=== PATIENT | female | born 1945 | race Caucasian/White ===

== ENCOUNTER → 2023-07-16 12:11 | Outpatient (CLI) | payer MEDICARE, OTHER, SELFPAY ==
[2023-07-16 13:22] LABS: Appearance Urine UA CLEAR; Bilirubin Urine UA NEGATIVE (NEGATIVE); Color Urine UA YELLOW; Glucose Urine UA NEGATIVE (Negative); Ketones Urine UA NEGATIVE (NEGATIVE); Leukocyte Esterase Urine UA NEGATIVE (NEGATIVE); Nitrite Urine UA NEGATIVE (Negative); Occult Blood Urine UA NEGATIVE (Negative); Protein Urine UA NEGATIVE (Negative); Specific Gravity Urine UA <=1.005 (1.000-1.035); Urobilinogen Urine UA 0.2 E.U./dL (0.2)
[2023-07-16 13:25] LABS: Add Manual Diff / Slide Review NO; Basophils Absolute Auto 100 /uL (0-100); Basophils Percent Auto 1.1 % (0-2); Eosinophils Absolute Auto 200 /uL (0-450); Eosinophils Percent Auto 2.7 % (2-4); Hematocrit 40.8 % (36-46); Hemoglobin 13.7 g/dL (12.0-16.0); Lymphocytes Absolute Auto 900 /uL (1100-4500); Lymphocytes Percent Auto 14.9 % (25-40); Mean Corpuscular HGB Conc 33.6 % (30-36); Mean Corpuscular Hemoglobin 32.8 PG (26-34); Mean Corpuscular Volume 97.6 fL (80-100); Monocytes Absolute Auto 700 /uL (0-900); Monocytes Percent Auto 10.9 % (3-14); Neutrophils Absolute Auto 4300 /uL (1500-7000); Neutrophils Percent Auto 70.4 % (50-75); Platelet Count 294 X10^3/uL (150-400); Red Blood Cell Count 4.18 X10^6/uL (4.0-5.2); Red Cell Distribution Width 13.9 % (11.6-14.8); White Blood Cell Count 6.1 X10^3/uL (4.5-11.0)
[2023-07-16 13:26] LABS: pH Urine UA 6.5 (4.5-8.0)
[2023-07-16 13:30] LABS: Bacteria Urine None Seen; Culture Indicated Urine Cult Not Indicated; RBC Urine None Seen (0-5/HPF); Squamous Epithelial Cell Urine None Seen (0-5/HPF); Urine Volume 10mL (spun); WBC Urine None Seen (0-5/HPF)
[2023-07-16 13:55] LABS: BUN Creatinine Ratio 26.3 (6-22); Blood Urea Nitrogen 15 mg/dL (7-17); Calcium 9.3 mg/dL (8.4-10.2); Carbon Dioxide 25 mmol/L (22-32); Chloride 105 mmol/L (98-107); Estimated Glomerular Filt Rate > 60 mL/min (>60); Glucose 95 mg/dL (80-110); HEMOLYSIS < 15 (0-50); Potassium 4.3 mmol/L (3.4-5.1); Sodium 137 mmol/L (137-145)
== END ==
PROVIDERS: PCP Family Medicine; Referring Provider Orthopaedic Surgery; Visit Provider Orthopaedic Surgery
DX: Z01.818 Encounter for other preprocedural examination (principal); R73.9 Hyperglycemia, unspecified; Z01.812 Encounter for preprocedural laboratory examination; N39.0 Urinary tract infection, site not specified
CPT/HCPCS: 36415; 80048; 81001; 83036; 85025; 93005; 93010

== ENCOUNTER 2023-09-29 11:53 | Inpatient (IN) | payer MEDICARE, OTHER, SELFPAY ==
[2023-09-29] VITALS (45 sets, daily range): BP systolic 105–164; BP diastolic 55–113; PULSE 77–177; RESP 6–29; TEMP 36.5–36.9; O2SAT 92–99; BMI 23.2; BMI 23.3
[2023-09-29 12:38] LABS: Add Manual Diff / Slide Review NO; Basophils Absolute Auto 0 /uL (0-100); Basophils Percent Auto 0.1 % (0-2); Eosinophils Absolute Auto 0 /uL (0-450); Hematocrit 47.3 % (36-46); Hemoglobin 15.7 g/dL (12.0-16.0); Lymphocytes Absolute Auto 200 /uL (1100-4500); Lymphocytes Percent Auto 1.1 % (25-40); Mean Corpuscular HGB Conc 33.3 % (30-36); Mean Corpuscular Hemoglobin 32.3 PG (26-34); Monocytes Absolute Auto 1200 /uL (0-900); Monocytes Percent Auto 6.6 % (3-14); Neutrophils Absolute Auto 16700 /uL (1500-7000); Neutrophils Percent Auto 92.2 % (50-75); Platelet Count 351 X10^3/uL (150-400); Red Blood Cell Count 4.87 X10^6/uL (4.0-5.2); White Blood Cell Count 18.1 X10^3/uL (4.5-11.0)
[2023-09-29 12:56] LABS: Bacteria Urine Many (>30); RBC Urine None Seen (0-5/HPF); Squamous Epithelial Cell Urine 5-10 /HPF (0-5/HPF); Urine Volume 10mL (spun); WBC Urine 1-5/HPF (0-5/HPF)
[2023-09-29 12:57] LABS: Culture Indicated Urine Specimen Cultured
[2023-09-29 12:59] LABS: Alanine Aminotransferase 17 IU/L (<35); Albumin 4.5 g/dL (3.5-5.0); Albumin Globulin Ratio 1.5 (1.0-2.8); Alkaline Phosphatase 70 U/L (38-126); Aspartate Aminotransferase 22 IU/L (14-36); BUN Creatinine Ratio 25.4 (6-22); Bilirubin Total 1.3 mg/dL (0.2-1.3); Blood Urea Nitrogen 16 mg/dL (7-17); Carbon Dioxide 26 mmol/L (22-32); Chloride 98 mmol/L (98-107); Estimated Glomerular Filt Rate > 60 mL/min (>60); Glucose 146 mg/dL (80-110); HEMOLYSIS < 15 (0-50); Lipase 65 U/L (23-300); Potassium 3.9 mmol/L (3.4-5.1); Sodium 133 mmol/L (137-145); Total Protein 7.5 g/dL (6.3-8.2)
--- NOTE | 2023-09-29 13:18 | ED.ABDPAIN ---
HPI - Abdominal Pain General Chief Complaint: Abdominal Pain Stated Complaint: sent by pcp obstruction of bowel Time Seen by Provider: 09/29/23 12:51 Source: patient Mode of arrival: Ambulatory Limitations: no limitations History of Present Illness HPI narrative: This is a 78-year-old female with history of osteopenia and arthritis. Patient states she started vomiting had 1 or 2 episodes and Thursday throughout Thursday and into yes. She states she has been stooling regularly each day her last bowel movement was yesterday she states normal form solid. She denies any hematochezia or melena. She denies any dysuria urgency or frequency. She does describe abdominal pain lower abdomen she states was quite painful when Dr. Melgoza palpated on the right side today that started around when she started vomiting. She denies any fevers or chills. No shortness of breath or chest pain, she does not feel her heart is fast rate is in the 170s, she has not had any syncope. Denies any significant lightheadedness. She denies any swelling in her extremities. She states she is on finasteride, clobetasol, estradiol patch and medication for osteopenia. No anticoagulants. Patient states no medicines for heart. no blood pressure, cholesterol or diabetes. Had a script sent for oxycodone anticipation of an upcoming knee surgery but has not been taking it. She has had a prior hysterectomy, both ovaries removed, appendix removed cataract surgery. No known drug allergies. No tobacco, she has a glass of wine several times weekly, no recreational drugs. Swapna Gillespie is her primary care physician. Dr. Alexander is her design engineering manager. She was sent from the urgent care today for concern for bowel obstruction she states no one told her heart rate was fast at that time. She does not have any sensation that her heart rate is fast. Related Data Allergies Allergy/AdvReac Type Severity Reaction Status Date / Time latex Allergy Rash Verified 09/29/23 11:57 Review of Systems Review of Systems ROS Unobtainable: All systems reviewed & are unremarkable except as noted in HPI and below Patient History Social History Smoking Status: Never smoker Smoking Status: Never smoker alcohol intake frequency: 0-2 drinks per day Substance Use Type: does not use Exam Narrative Exam Narrative: GENERAL: Alert and oriented x three, well-appearing elderly female in mild distress. HEENT: Head normocephalic, atraumatic, EOMI, pupils reactive, face symmetric, moist mucous membranes NECK: Supple, full range of motion CARDIOVASCULAR: Tachycardic but regular rate and rhythm without murmurs, rubs or gallops. 2+ pulses upper and lower extremities. No edema bilateral lower extremities. RESPIRATORY: Breath sounds equal bilaterally, no wheezes rales or rhonchi. No tachypnea or accessory muscle use. ABDOMEN: Soft, positive for right lower quadrant tenderness. Slightly distended. Normoactive bowel sounds all 4 quadrants. No guarding or rebound, rigidity, no mass, no hernias. : No CVA tenderness EXTREMITIES: Normal range of motion, no clubbing or edema. Neurovascularly intact NEUROLOGICAL: Cranial nerves II through XII grossly intact. Moving all extremities SKIN: Warm, dry, no petechiae, no rashes or lesions. Initial Vital Signs Initial Vital Signs: Vital Signs Temperature 98.5 F 09/29/23 11:58 Pulse Rate 115 H 09/29/23 11:58 Respiratory Rate 18 09/29/23 11:58 Blood Pressure 118/94 H 09/29/23 11:58 Pulse Oximetry 99 09/29/23 11:58 Oxygen Delivery Method Room Air 09/29/23 11:58 Course Orders Ordered: ED Orders 09/29/23 12:01 EKG-12 Lead Stat 09/29/23 12:05 Urine Culture Stat Urine Microscopic Stat 09/29/23 12:20 Lactate (Lactic Acid) Stat Procalcitonin Stat 09/29/23 12:25 BNP [NT-proBNP (BNP-Adult 18+)] Stat Complete Blood Count AUTO DIFF Stat Comprehensive Metabolic Panel Stat Lipase Stat MAG [Magnesium] Stat Troponin & CK Cardiac Panel Stat 09/29/23 13:16 CT abdomen pelvis w con Stat Chest [XR chest 1V] Stat 09/29/23 13:37 Blood Culture Stat 09/29/23 15:00 PTT Partial Thromboplastin Jose Q6H 09/29/23 15:21 XR gastrografin challenge Stat 09/29/23 15:54 PTT Partial Thromboplastin Jose Stat Prothrombin Time INR Stat 09/29/23 21:00 PTT Partial Thromboplastin Jose Q6H 09/30/23 03:00 PTT Partial Thromboplastin Jose Q6H 09/30/23 05:00 Hemoglobin and Hematocrit DAILY Platelet Count DAILY 09/30/23 09:00 PTT Partial Thromboplastin Jose Q6H 10/01/23 05:00 Hemoglobin and Hematocrit DAILY Platelet Count DAILY DILTIAZEM (Diltiazem 125 Mg/125 Ml-D5w) 125 mg in 125 mls @ 5 mls/hr IV TITRATE BARI; Protocol Last Admin: 09/29/23 15:00 Dose: 5 mg/hr, 5 mls/hr Documented By: JOSE RAFAEL Heparin Sodium/Dextrose (Heparin Drip) 25,000 unit in 500 mls @ 21.392 mls/hr IV CONT BARI; Protocol Last Admin: 09/29/23 16:04 Dose: 18 units/kg/hr, 21.392 mls/hr Documented By: SILVIA Co-signed By: JOSE RAFAEL Ondansetron HCl (Ondansetron 4 Mg Odt) 4 mg PO NOW PRN PRN Reason: Nausea And Vomiting Ondansetron HCl (Ondansetron 4 Mg/2 Ml Inj) 4 mg IV NOW PRN PRN Reason: Nausea And Vomiting Discontinued Medications Diltiazem HCl (Diltiazem 5 Mg/Ml Sdv) 10 mg IV NOW ONE Stop: 09/29/23 14:31 Last Admin: 09/29/23 14:49 Dose: 10 mg Documented By: JOSE RAFAEL Heparin Sodium (Porcine) (Heparin 5,000 Unit/Ml Vial) 5,000 unit 80 unit/kg (5000 unit) IV NOW ONE Stop: 09/29/23 14:46 Last Admin: 09/29/23 16:03 Dose: 5,000 unit Documented By: SILVIA Sodium Chloride (Normal Saline 0.9%) 1,000 mls @ 1,000 mls/hr IV BOLUS ONE Stop: 09/29/23 14:15 Last Infusion: 09/29/23 15:07 Dose: Infused Documented By: JOSE RAFAEL Admin: 09/29/23 13:23 Dose: 1,000 mls/hr Documented By: SILVIA Ceftriaxone Sodium 1,000 mg/ (Sodium Chloride) 100 mls @ 200 mls/hr IV NOW ONE Stop: 09/29/23 14:31 Last Infusion: 09/29/23 15:41 Dose: Infused Documented By: Admin: 09/29/23 15:00 Dose: 200 mls/hr Documented By: JOSE RAFAEL Ondansetron HCl (Ondansetron 4 Mg/2 Ml Inj) 4 mg IV NOW ONE Stop: 09/29/23 14:30 Last Admin: 09/29/23 15:00 Dose: 4 mg Documented By: JOSE RAFAEL Sodium Chloride (Sodium Chloride 0.9% Flush) 10 ml IV BID BARI Sodium Chloride (Sodium Chloride 0.9% Flush) 10 ml IV PRN PRN PRN Reason: Flush Vital Signs Vital signs: Vital Signs - 8 hr 09/29/23 11:58 09/29/23 12:20 09/29/23 12:30 Temperature 98.5 F Pulse Rate 115 H 173 H 171 H Respiratory Rate 18 29 H 25 H Blood Pressure 118/94 H Pulse Oximetry 99 97 96 Oxygen Delivery Method Room Air 09/29/23 12:47 09/29/23 12:47 09/29/23 13:00 Temperature Pulse Rate 177 H Respiratory Rate 25 H Blood Pressure 126/82 105/81 Pulse Oximetry 96 Oxygen Delivery Method 09/29/23 13:00 09/29/23 13:30 09/29/23 13:30 Temperature Pulse Rate 174 H 167 H Respiratory Rate 20 21 Blood Pressure 113/78 Pulse Oximetry 94 94 Oxygen Delivery Method 09/29/23 13:55 09/29/23 13:55 09/29/23 14:00 Temperature Pulse Rate 159 H 165 H Respiratory Rate 22 26 H Blood Pressure 145/65 H Pulse Oximetry 95 96 Oxygen Delivery Method 09/29/23 14:00 09/29/23 14:30 09/29/23 14:30 Temperature Pulse Rate 165 H Respiratory Rate 24 Blood Pressure 149/67 H 164/113 H Pulse Oximetry 95 Oxygen Delivery Method 09/29/23 14:55 09/29/23 14:55 09/29/23 15:00 Temperature Pulse Rate 162 H 159 H Respiratory Rate 25 H 24 Blood Pressure 142/82 H Pulse Oximetry 97 94 Oxygen Delivery Method 09/29/23 15:00 09/29/23 15:05 09/29/23 15:05 Temperature Pulse Rate 154 H Respiratory Rate 15 Blood Pressure 120/77 128/75 Pulse Oximetry 93 Oxygen Delivery Method MDM - Abdominal Pain Lab Data 09/29/23 12:25 09/29/23 12:25 Labs: Lab Results 04/30/24 04/30/24 04/30/24 Range/Units 12:05 12:20 12:25 WBC 18.1 H (4.5-11.0) X10^3/uL RBC 4.87 (4.0-5.2) X10^6/uL Hgb 15.7 (12.0-16.0) g/dL Hct 47.3 H (36-46) % MCV 97.0 (80-100) fL MCH 32.3 (26-34) PG MCHC 33.3 (30-36) % RDW 13.0 (11.6-14.8) % Plt Count 351 (150-400) X10^3/uL Neut % (Auto) 92.2 H (50-75) % Lymph % (Auto) 1.1 L (25-40) % Benson % (Auto) 6.6 (3-14) % Eos % (Auto) 0.0 L (2-4) % Baso % (Auto) 0.1 (0-2) % Neut # (Auto) 46655 H (1591-4918) /uL Lymph # (Auto) 200 L (1715-6636) /uL Benson # (Auto) 1200 H (0-900) /uL Eos # (Auto) 0 (0-450) /uL Baso # (Auto) 0 (0-100) /uL Sodium 133 L (137-145) mmol/L Potassium 3.9 (3.4-5.1) mmol/L Chloride 98 (98-107) mmol/L Carbon Dioxide 26 (22-32) mmol/L BUN 16 (7-17) mg/dL Creatinine 0.63 (0.52-1.04) mg/dL Estimated GFR > 60 (>60) mL/min BUN/Creatinine Ratio 25.4 H (6-22) Glucose 146 H (80-110) mg/dL Lactate 2.1 (0.7-2.1) mmol/L Calcium 10.0 (8.4-10.2) mg/dL Magnesium 1.9 (1.6-2.3) mg/dL Total Bilirubin 1.3 (0.2-1.3) mg/dL AST 22 (14-36) IU/L ALT 17 (<35) IU/L Alkaline Phosphatase 70 (38-126) U/L Total Creatine Kinase 82 (30-135) U/L Troponin I < 0.012 (0.01-0.034) ng/mL NT-Pro-B Natriuret Pep 395 (<450) pg/mL Total Protein 7.5 (6.3-8.2) g/dL Albumin 4.5 (3.5-5.0) g/dL Globulin 3.0 (1.7-4.1) g/dL Albumin/Globulin Ratio 1.5 (1.0-2.8) Lipase 65 (23-300) U/L Procalcitonin 0.07 (<0.5) ng/mL Urine RBC None seen (0-5/HPF) Urine WBC 1-5/hpf (0-5/HPF) Ur Squamous Epith Cells 5-10 /hpf H (0-5/HPF) Urine Bacteria Many (>30) H (None) Ur Culture Indicated? Specimen cultured Vol Urine Centrifuged 10ml (spun) Point of care testing: Urine Dip Bedside Urine Glucose Negative Bedside Urine Bilirubin - Negative Bedside Urine Ketone +++ 80 Urine Specific [place] 1.030 Bedside Urine Occult Blood +/- Bedside Urine pH 6.0 Bedside Urine Protein + 30 Bedside Urine Urobilinogen - Negative Bedside Urine Nitrite - Negative Bedside Urine Leukocytes - Negative Esterase Imaging Data Chest x-ray: Radiologist's Impression: [place] [address] XRay Report Signed Patient: Hodan Diaz MR#: [id number] : 1945 Acct:[id number] Age/Sex: 78 / F Date of Service: 09/29/23 Loc: ED Accession Number: [id number] Procedure: XR chest 1V Ordering Provider: Ruth Ann Stewart D.O. PROCEDURE: XR CHEST 1V INDICATIONS: abd pain, RLQ and LLQ, hx appy and hyst, afib rvr TECHNIQUE: One view of the chest was acquired. COMPARISON: None. FINDINGS: Surgical changes and devices: None. Lungs and pleura: Mild opacity in the right infrahilar region. No drainable pleural effusions. No dense consolidation elsewhere. Mediastinum: Normal heart size Bones and chest wall: Degenerative changes. IMPRESSION: On this single view radiograph, there is a mild right infrahilar opacity that may represent airspace disease versus atelectasis. No drainable effusions. Consider future imaging surveillance to assess for resolution. Dictated by: Rocco Griffith M.D. on 09/29/2023 at 14:07 Approved by: Rocco Griffith M.D. on 09/29/2023 at 14:08 CT scan - abdomen/pelvis: Radiologist's Impression: Hodan Diaz??78??F??1945 ? Allergy/Adv: latex Close Chest X-Ray (Signed) Jesse Griffithry - 09/29/23 Abdomen/Pelvis CT (Signed) NachoRocco - 09/29/23 [place] [address] CT Scan Report Signed Patient: Hodan Diaz MR#: [id number] : 1945 Acct:[id number] Age/Sex: 78 / F Date of Service: 09/29/23 Loc: ED Accession Number: [id number] Procedure: CT abdomen pelvis w con Ordering Provider: Ruth Ann Stewart D.O. PROCEDURE: CT ABDOMEN PELVIS W CON INDICATIONS: abd pain, RLQ and LLQ, hx appy and hyst, afib rvr TECHNIQUE: After the administration of intravenous contrast, axial sections acquired from the lung bases to the pubic symphysis. Coronal and sagittal reformats were performed. For radiation dose reduction, the following was used: automated exposure control, adjustment of mA and/or kV according to patient size. COMPARISON: None. FINDINGS: Image quality: Diagnostic Lower chest: Scattered scarring and atelectasis. Infrahilar opacity on the right confirmed, with a consolidation in the right middle lobe. Normal heart size Liver: Small perihepatic ascites. No suspicious focal liver lesion Gallbladder and biliary system: Gallbladder is unremarkable. No pathologic biliary ductal dilation Pancreas: No suspicious ductal dilation Spleen: Nonenlarged Adrenals: No discrete nodules Kidneys: No solid mass or hydronephrosis. Bilateral extrarenal pelvis/mild pelviectasis. Subcentimeter lesions are too small to characterize, usually cysts Vessels and lymph nodes: The main portal vein is patent. No abdominal aortic aneurysm. Possible filling defect in the right common femoral vein and iliac veins, versus mixing artifact. No pathologic lymph nodes by size criteria Bowel and peritoneum: Moderate diffuse dilation of the small bowel loops relative under distension of the colon. Transition is probably in the lower right abdomen. Small amount of perienteric ascites. Small amount pelvic free fluid. Body wall: Unremarkable Pelvis: Bladder is unremarkable. Uterus is not seen Bones: Left hip arthroplasty, with surrounding metallic artifact. There are degenerative changes. IMPRESSION: Small bowel obstruction. Transition is probably in the lower right abdomen. Small amount of ascites, possibly reactive. Right middle lobe pulmonary opacities suspicious for infection. Other areas of suspected atelectasis are seen. Possible filling defect in the right common femoral vein and iliac veins, representing mixing artifact versus thrombus. Consider vascular ultrasound correlation. Other findings as above. Dictated by: Rocco Griffith M.D. on 09/29/2023 at 14:13 Approved by: Rocco Griffith M.D. on 09/29/2023 at 14:20 ECG Data Attestation: I personally reviewed and interpreted this ECG as follows: Interpretation: AFib with RVR, rate of 179 QRS is 76 QTC 459. Nonspecific change patient does have little bit depression lateral lead. No elevation appreciated. MDM Narrative Medical decision making narrative: Well-appearing 78-year-old female with AFib RVR with heart rate in the 170s, patient is tolerating quite well. She has had vomiting for the past 5 days she is having bowel movements does have some right lower quadrant pain that she describes as sometimes being on both sides. Concern for dehydration obstruction versus infection possibly kicking off her cardiac arrhythmia. She does not have any sensation of having tachycardia. She was in urgent care and sent today and their note does not indicate she was tachycardic at that time. Patient labs show white count of 18 hemoglobin of 15 platelets of 351 predominance of neutrophils. Sodium is 133 potassium 3 9 chloride 98 CO2 is 26 BUN 16 creatinine 0.63 glucose is 146 calcium 10, magnesium is 1.9 LFTs are negative. Lipase is normal. Troponin is negative. BNP is 395 Urine shows ketones, protein, no nitrates or leuks, no RBCs 1-5 WBCs 5-10 squamous many bacteria patient urine was sent for culture. Chest x-ray shows mild right infrahilar opacity may represent airspace disease versus atelectasis no drainable effusions consider surveillance to assess for resolution. Patient family updated about need for follow-up. CT abdomen pelvis shows small bowel obstruction transition probably right lower abdomen small amount of ascites possibly reactive right middle lobe pulmonary opacities suspicious for infection possible filling defect right common femoral iliac vein representing artifact versus thrombus consider vascular ultrasound correlation. Patient likely has a component of dehydration was given 1 L fluids before and any antiarrhythmics, her heart rate. Spoke with Dr. Lomeli, general surgery: Is to see the happy to see the patient, discussed she does have AFib RVR and some medical issues currently with plan for admit to medicine. Dr. Peraza, hospitalist: Discussed patient has had some bowel movements so maybe more of a partial bowel obstruction, accepts for admission we will have a start heparin drip for potential surgery can be easily turned off. Continue with diltiazem drip. Did discuss there is question of artifact versus thrombus in the right iliac vessel on CT, Dr. De Los Santos states they will follow with that and decide if they need further imaging or next steps. Critical Care Time Critical Care Time Critical Care Time: Yes Total Critical Care Time: 45 Attestation: The high probability of a clinically significant, sudden or life threatening deterioration of the [cardiac, pulm] system(s) required my full and direct attention, intervention and personal management. The aggregate critical care time was [] minutes. This time is in addition to time spent performing reported procedures but includes the following: [x] Data Review and interpretation [x] Patient assessment and monitoring of vital signs [x] Documentation [x] Medication orders and management Discharge Plan Departure Patient Disposition: Admitted As Inpatient Clinical Impression: Atrial fibrillation with rapid ventricular response, Small bowel obstruction, Pneumonia
[2023-09-29] MEDS: SODIUM CHLORIDE 0.9% 1,000 ML 1000 ML IV (13:23)
[2023-09-29 13:34] LABS: Creatine Kinase 82 U/L (30-135); Magnesium 1.9 mg/dL (1.6-2.3)
[2023-09-29 13:39] LABS: Lactate (Lactic Acid) 2.1 mmol/L (0.7-2.1)
[2023-09-29 13:46] LABS: NT-proBNP (BNP-Adult 18+) 395 pg/mL (<450); Troponin I < 0.012 ng/mL (0.01-0.034)
[2023-09-29 13:57] LABS: Procalcitonin 0.07 ng/mL (<0.5)
[2023-09-29] MEDS: dilTIAZem 5 MG/ML SDV 10 MG IV (14:49)
[2023-09-29] MEDS: ONDANSETRON 4 MG/2 ML INJ IV (15:00)
[2023-09-29] MEDS: DILTIAZEM 125 MG/125 ML PIGGYBACK IV (15:00)
[2023-09-29] MEDS: cefTRIAXone 1,000 MG in SODIUM CHLORIDE 0.9% 100 ML 200 MG IV (15:00)
[2023-09-29 15:06] LABS: Reflexed Lactate in 2 Hours Y
--- NOTE | 2023-09-29 15:21 | DI.RAD.S_ITS ---
PROCEDURE: XR GASTROGRAFIN CHALLENGE COMPARISON: [facility], CT, CT ABDOMEN PELVIS W CON, 09/29/2023, 13:42. INDICATIONS: sbo FINDINGS: Single abdominal image demonstrates mildly dilated loops of small bowel. Contrast is not identified within the colon. Overall appearance is not significantly changed compared to prior exam. Left hip arthroplasty. IMPRESSION: Persistent appearance of partial small bowel obstruction without significant change compared to CT exam. No contrast is definitively identified in the colon. If this remains of concern, further delayed imaging is recommended. Dictated by: Qing Johnson M.D. on 09/29/2023 at 22:07 Approved by: Qing Johnson M.D. on 09/29/2023 at 22:08
--- NOTE | 2023-09-29 15:22 | PM.CALLCOV.1 ---
Call Coverage Note Note Date of Patient Contact: 09/29/23 Time of Patient Contact: 15:22 Narrative of Care Provided: 78F admitted with PNA AFib and SBO. No acute surgical intervention proceed with conservative management Gastrografin challenge NGT if emesis
[2023-09-29] MEDS: HEPARIN 5,000 UNIT/ML VIAL 5000 UNIT IV (16:03)
[2023-09-29] MEDS: HEPARIN DRIP 25,000 UNIT/500 ML IV.SOLN 21.392 UNIT IV (16:04)
[2023-09-29 16:12] LABS: INR 1.2 (0.9-1.3); Prothrombin Time 13.6 SECONDS (9.4-12.5)
[2023-09-29 16:15] LABS: PTT Partial Thromboplastin Tim 37 SECONDS (25.1-36.5)
--- NOTE | 2023-09-29 17:01 | PC.NURSE ---
patients heart rate noted to be 86 on bedside monitor and an EKG was ordered and done. It was showed to Dr. Stewart which showed that the patient converted to NSR at a rate of [address] Peraza called and ordered for the diltiazem drip to be stopped.
[2023-09-29] MEDS: MORPHINE 2 MG/ML INJ IV ×2 (17:29→21:38)
--- NOTE | 2023-09-29 19:00 | P.HP_ITS ---
History of Present Illness History of Present Illness Date Patient Seen: 09/29/23 Time Patient Seen: 19:00 Chief complaint: sent by pcp obstruction of bowel Narrative: Pt is 78 yo female with hx hysterectomy, no other abdominal surgeries, presents with c/o abdominal pain x 1 week. She started vomiting episodes 5 days ago, last BM yesterday. She has no history of heart problems. She was noted to be in afib with RVR, rate 170 bpm in ED. She denies any palpitations, chest pain or dyspnea. CT showed small bowel obstruction with transition in RLQ. Right middle lobe lung opacities suspicious for pneumonia, partial filling defect right CFV and iliac veins - artifact vs DVT. Pt denies fever, cough, dyspnea, leg swelling. Hasn't had urinary symptoms. Dr Lomeli consulted from ED. For afib she was started on diltiazem drip and later converted to sinus on her own. K and Mg are nl. WBC 18k, nl lactate. EKG personally reviewed and shows afib without ST abnormality. Troponin nl. PFSH Social History Smoking Status: Never smoker Meds Home Medications and Allergies Allergies Allergy/AdvReac Type Severity Reaction Status Date / Time latex Allergy Rash Verified 09/29/23 11:57 Exam Vital Signs (past 8 hours): - 09/29/23 11:58 09/29/23 12:20 09/29/23 12:30 Temperature 98.5 F Pulse Rate 115 H 173 H 171 H Respiratory Rate 18 29 H 25 H Blood Pressure 118/94 H Pulse Oximetry 99 97 96 Oxygen Delivery Method Room Air 09/29/23 12:47 09/29/23 12:47 09/29/23 13:00 Temperature Pulse Rate 177 H Respiratory Rate 25 H Blood Pressure 126/82 105/81 Pulse Oximetry 96 Oxygen Delivery Method 09/29/23 13:00 09/29/23 13:30 09/29/23 13:30 Temperature Pulse Rate 174 H 167 H Respiratory Rate 20 21 Blood Pressure 113/78 Pulse Oximetry 94 94 Oxygen Delivery Method 09/29/23 13:55 09/29/23 13:55 09/29/23 14:00 Temperature Pulse Rate 159 H 165 H Respiratory Rate 22 26 H Blood Pressure 145/65 H Pulse Oximetry 95 96 Oxygen Delivery Method 09/29/23 14:00 09/29/23 14:30 09/29/23 14:30 Temperature Pulse Rate 165 H Respiratory Rate 24 Blood Pressure 149/67 H 164/113 H Pulse Oximetry 95 Oxygen Delivery Method 09/29/23 14:55 09/29/23 14:55 09/29/23 15:00 Temperature Pulse Rate 162 H 159 H Respiratory Rate 25 H 24 Blood Pressure 142/82 H Pulse Oximetry 97 94 Oxygen Delivery Method 09/29/23 15:00 09/29/23 15:05 09/29/23 15:05 Temperature Pulse Rate 154 H Respiratory Rate 15 Blood Pressure 120/77 128/75 Pulse Oximetry 93 Oxygen Delivery Method 09/29/23 15:10 09/29/23 15:10 09/29/23 15:15 Temperature Pulse Rate 161 H 167 H Respiratory Rate 23 15 Blood Pressure 142/87 H Pulse Oximetry 94 94 Oxygen Delivery Method 09/29/23 15:15 09/29/23 15:20 09/29/23 15:20 Temperature Pulse Rate 162 H Respiratory Rate 20 Blood Pressure 127/77 118/72 Pulse Oximetry 94 Oxygen Delivery Method 09/29/23 15:25 09/29/23 15:25 09/29/23 15:30 Temperature Pulse Rate 165 H Respiratory Rate 13 Blood Pressure 108/75 154/66 H Pulse Oximetry 94 Oxygen Delivery Method 09/29/23 15:30 09/29/23 15:35 09/29/23 15:35 Temperature Pulse Rate 164 H 175 H Respiratory Rate 15 23 Blood Pressure 135/77 Pulse Oximetry 94 93 Oxygen Delivery Method 09/29/23 15:40 09/29/23 15:40 09/29/23 15:45 Temperature Pulse Rate 174 H 167 H Respiratory Rate 14 21 Blood Pressure 141/79 H Pulse Oximetry 95 95 Oxygen Delivery Method 09/29/23 15:45 09/29/23 15:50 09/29/23 15:50 Temperature Pulse Rate 165 H Respiratory Rate 18 Blood Pressure 125/84 148/80 H Pulse Oximetry 94 Oxygen Delivery Method 09/29/23 15:55 09/29/23 15:55 09/29/23 16:00 Temperature Pulse Rate 167 H 164 H Respiratory Rate 15 18 Blood Pressure 144/55 H Pulse Oximetry 93 94 Oxygen Delivery Method 09/29/23 16:01 09/29/23 16:01 09/29/23 16:05 Temperature Pulse Rate 161 H 173 H Respiratory Rate 20 16 Blood Pressure 135/70 Pulse Oximetry 94 93 Oxygen Delivery Method 09/29/23 16:05 09/29/23 16:10 09/29/23 16:10 Temperature Pulse Rate 167 H Respiratory Rate 17 Blood Pressure 153/65 H 145/75 H Pulse Oximetry 94 Oxygen Delivery Method 09/29/23 16:15 09/29/23 16:15 09/29/23 16:20 Temperature Pulse Rate 169 H Respiratory Rate 6 L Blood Pressure 142/75 H 140/82 Pulse Oximetry 95 Oxygen Delivery Method 09/29/23 16:20 09/29/23 16:25 09/29/23 16:25 Temperature Pulse Rate 167 H 165 H Respiratory Rate 18 19 Blood Pressure 138/86 Pulse Oximetry 93 94 Oxygen Delivery Method 09/29/23 16:30 09/29/23 16:30 09/29/23 16:35 Temperature Pulse Rate 164 H 163 H Respiratory Rate 17 20 Blood Pressure 139/76 Pulse Oximetry 94 93 Oxygen Delivery Method 09/29/23 16:35 09/29/23 16:40 09/29/23 16:40 Temperature Pulse Rate 89 Respiratory Rate 20 Blood Pressure 132/74 133/73 Pulse Oximetry 93 Oxygen Delivery Method 09/29/23 16:45 09/29/23 16:45 09/29/23 16:50 Temperature Pulse Rate 86 Respiratory Rate 21 Blood Pressure 135/73 132/82 Pulse Oximetry 92 Oxygen Delivery Method 09/29/23 16:50 09/29/23 16:55 09/29/23 16:55 Temperature Pulse Rate 92 H 87 Respiratory Rate 23 21 Blood Pressure 130/79 Pulse Oximetry 94 95 Oxygen Delivery Method 09/29/23 17:00 09/29/23 17:00 09/29/23 17:20 Temperature Pulse Rate 86 81 Respiratory Rate 18 22 Blood Pressure 129/76 Pulse Oximetry 94 93 Oxygen Delivery Method Room Air 09/29/23 17:20 09/29/23 17:30 09/29/23 17:40 Temperature Pulse Rate 82 Respiratory Rate 20 Blood Pressure 131/70 143/74 H Pulse Oximetry 94 Oxygen Delivery Method 09/29/23 17:40 09/29/23 18:00 09/29/23 18:00 Temperature Pulse Rate 82 84 Respiratory Rate 18 18 Blood Pressure 142/80 H Pulse Oximetry 93 95 Oxygen Delivery Method 09/29/23 18:20 09/29/23 18:20 09/29/23 18:30 Temperature Pulse Rate 81 82 Respiratory Rate 22 14 Blood Pressure 151/74 H Pulse Oximetry 94 93 Oxygen Delivery Method 09/29/23 18:40 09/29/23 18:40 Temperature Pulse Rate 86 Respiratory Rate 20 Blood Pressure 149/78 H Pulse Oximetry 95 Oxygen Delivery Method Room Air Oxygen Delivery Method Room Air Narrative Exam Narrative: Gen: alert, more comfortable after IV morphine HEENT: anicteric Lungs: clear CV: regular rhythm, no murmur Abd: distended, absent bowel sounds Ext: no edema Neuro: nl speech, affect Objective Labs 09/29/23 12:25 09/29/23 12:25 Labs: Laboratory Results - last 24 hr 09/29/23 09/29/23 09/29/23 12:05 12:20 12:25 WBC 18.1 H RBC 4.87 Hgb 15.7 Hct 47.3 H MCV 97.0 MCH 32.3 MCHC 33.3 RDW 13.0 Plt Count 351 Neut % (Auto) 92.2 H Lymph % (Auto) 1.1 L [place] % (Auto) 6.6 Eos % (Auto) 0.0 L Baso % (Auto) 0.1 Neut # (Auto) 86442 H Lymph # (Auto) 200 L [place] # (Auto) 1200 H Eos # (Auto) 0 Baso # (Auto) 0 PT INR APTT Sodium 133 L Potassium 3.9 Chloride 98 Carbon Dioxide 26 BUN 16 Creatinine 0.63 Estimated GFR > 60 BUN/Creatinine Ratio 25.4 H Glucose 146 H Lactate 2.1 Calcium 10.0 Magnesium 1.9 Total Bilirubin 1.3 AST 22 ALT 17 Alkaline Phosphatase 70 Total Creatine Kinase 82 Troponin I < 0.012 NT-Pro-B Natriuret Pep 395 Total Protein 7.5 Albumin 4.5 Globulin 3.0 Albumin/Globulin Ratio 1.5 Lipase 65 Procalcitonin 0.07 Urine RBC None seen Urine WBC 1-5/hpf Ur Squamous Epith Cells 5-10 /hpf H Urine Bacteria Many (>30) H Ur Culture Indicated? Specimen cultured Vol Urine Centrifuged 10ml (spun) 09/29/23 09/29/23 15:40 15:54 WBC RBC Hgb Hct MCV MCH MCHC RDW Plt Count Neut % (Auto) Lymph % (Auto) [place] % (Auto) Eos % (Auto) Baso % (Auto) Neut # (Auto) Lymph # (Auto) [place] # (Auto) Eos # (Auto) Baso # (Auto) PT 13.6 H INR 1.2 APTT 37 H Sodium Potassium Chloride Carbon Dioxide BUN Creatinine Estimated GFR BUN/Creatinine Ratio Glucose Lactate 1.0 Calcium Magnesium Total Bilirubin AST ALT Alkaline Phosphatase Total Creatine Kinase Troponin I NT-Pro-B Natriuret Pep Total Protein Albumin Globulin Albumin/Globulin Ratio Lipase Procalcitonin Urine RBC Urine WBC Ur Squamous Epith Cells Urine Bacteria Ur Culture Indicated? Vol Urine Centrifuged Assessment & Plan Assessment & Plan narrative: 1. Afib with RVR 2. SBO 3. Likely mild aspiration pneumonia. rt middle lobe opacity on CT 4. Urinary bacteria on UA without clinical UTI symptoms 5. leukocytosis due to SBO +/- pneumonia 6. partial filling defect rt CFV and iliac veins likely artifactual since no unilateral leg swelling or pain PLAN: -IV heparin for afib stroke prevention -Telemetry - now off dilt drip -ECHO -cont Rocephin IV, started in ED for poss pneumonia -IV morphine prn abdominal pain -Zofran prn -NS 100 cc/hr -NPO -consult surgery for SBO -f/u urine and blood cx -AM labs Code status: full DVT prevention: on heparin drip Surrogate: sister
[2023-09-29] MEDS: SODIUM CHLORIDE 0.9% 1,000 ML 100 ML IV (20:45)
[2023-09-29] MEDS: ONDANSETRON 4 MG ODT PO (20:46)
[2023-09-29 22:19] LABS: PTT Partial Thromboplastin Tim 161 SECONDS (25.1-36.5)
--- NOTE | 2023-09-29 22:36 | PC.NURSE ---
Call from lab to report critical PTT value: 161. Heparin gtt was stopped per protocol, will cont. with plan of care and protocol instructions. Charge nurse notified. Provider notified of lab value and that patient is back into Afib at a controlled rate, no new orders at this time. Will cont. plan of care for pt.
[2023-09-30] VITALS (16 sets, daily range): BP systolic 103–158; BP diastolic 65–98; PULSE 82–104; RESP 15–19; TEMP 36.1–37.2; O2SAT 93–100; BMI 23.3
--- NOTE | 2023-09-30 | PATH_ITS ---
[facility] Accession Number: [id number] No. of containers..01 Tissue . 01 Material submitted: . small bowel - SMALL BOWEL . 01 Diagnosis: SMALL BOWEL: Segment of small bowel with transmural congestion and focal active serositis, compatible with adhesion. No dysplasia or malignancy identified. [facility] 10/06/2023 1358 Local . 01 Electronically signed: . Josef Pagan MD, Pathologist NPI- [id number] . 01 Gross description: . Received in formalin with two identifiers and small bowel, is an unoriented portion of bowel measuring 2.4 cm in length by 2.2 cm in diameter with a small amount of mesentery extending out to 1.0 cm. One staple line is inked blue, the opposite staple line is inked black, and the mesenteric margin is inked green. The serosa is inked brown with a full thickness defect measuring 1.3 cm in greatest dimension, and is inked orange and located 0.3 cm from the nearest blue-inked margin. The lumen contains a moderate amount of semisolid hemorrhagic material. The mucosa is lara and velvety with normal appearing folds and no lesions identified. The sun average 0.3 cm thick with no lesions identified. No lymph node candidates are palpated. [employer] sections are submitted as follows: . A1: Rep margins to include perpendicular defect to blue-inked margin. A2: Normal mucosa and area of defect. ([id number]) /MRV 10/06/2023 1358 Local . 01 Pathologist provided ICD-10: K56.50 . 01 CPT . 934777 Specimen Comment: A courtesy copy of this report has been sent to [phone] Performed at: 01 [facility] [address], [place], [place] [id number] MD Josef Pagan MD Phone: [phone]
[2023-09-30 05:16] LABS: Add Manual Diff / Slide Review NO; Basophils Absolute Auto 0 /uL (0-100); Basophils Percent Auto 0.2 % (0-2); Eosinophils Absolute Auto 0 /uL (0-450); Hematocrit 44.1 % (36-46); Hemoglobin 14.8 g/dL (12.0-16.0); Lymphocytes Absolute Auto 300 /uL (1100-4500); Lymphocytes Percent Auto 2.4 % (25-40); Mean Corpuscular HGB Conc 33.6 % (30-36); Mean Corpuscular Hemoglobin 32.6 PG (26-34); Monocytes Absolute Auto 900 /uL (0-900); Monocytes Percent Auto 6.3 % (3-14); Neutrophils Absolute Auto 13100 /uL (1500-7000); Neutrophils Percent Auto 91.1 % (50-75); Platelet Count 337 X10^3/uL (150-400); Red Blood Cell Count 4.54 X10^6/uL (4.0-5.2); Red Cell Distribution Width 13.3 % (11.6-14.8); White Blood Cell Count 14.4 X10^3/uL (4.5-11.0)
[2023-09-30 05:28] LABS: PTT Partial Thromboplastin Tim 75 SECONDS (25.1-36.5)
[2023-09-30 05:29] LABS: BUN Creatinine Ratio 31.5 (6-22); Blood Urea Nitrogen 17 mg/dL (7-17); Calcium 9.4 mg/dL (8.4-10.2); Carbon Dioxide 28 mmol/L (22-32); Chloride 107 mmol/L (98-107); Estimated Glomerular Filt Rate > 60 mL/min (>60); Glucose 155 mg/dL (80-110); HEMOLYSIS < 15 (0-50); Potassium 4.1 mmol/L (3.4-5.1); Sodium 140 mmol/L (137-145)
[2023-09-30 06:09] LABS: TSH w/ Reflex to FT4 0.76 uIU/mL (0.47-4.68)
[2023-09-30] MEDS: SODIUM CHLORIDE 0.9% 1,000 ML 100 ML IV ×2 (06:32→20:00)
--- NOTE | 2023-09-30 07:19 | PM.PN.1 ---
Subjective Subjective Interval history: Persistent pain, distention, and belching. Some nausea. No flatus. Discussed with the surgeon, Dr. Owens. He will operate today for a bowel obstruction. She has a history of hysterectomy. Exam Vital Signs (past 8 hours): - 09/30/23 00:00 09/30/23 04:00 Temperature 99.0 F 97.0 F L Pulse Rate 104 H 97 H Respiratory Rate 17 18 Blood Pressure 142/90 H 145/92 H Pulse Oximetry 93 94 Oxygen Flow Rate 0 0 Oxygen Delivery Method Room Air Oxygen Flow Rate 0 Narrative Exam Narrative: NAD, alert and oriented. Fluent speech. Lungs are clear, normal rate and effort. Heart is regular, no murmur gallop or rub. Abdomen is distended and hypertympanic. Extremities are free of edema. Objective Labs 09/30/23 05:00 09/30/23 05:00 Labs: Laboratory Results - last 24 hr 09/29/23 09/29/23 09/29/23 12:05 12:20 12:25 WBC 18.1 H RBC 4.87 Hgb 15.7 Hct 47.3 H MCV 97.0 MCH 32.3 MCHC 33.3 RDW 13.0 Plt Count 351 Neut % (Auto) 92.2 H Lymph % (Auto) 1.1 L [place] % (Auto) 6.6 Eos % (Auto) 0.0 L Baso % (Auto) 0.1 Neut # (Auto) 51913 H Lymph # (Auto) 200 L [place] # (Auto) 1200 H Eos # (Auto) 0 Baso # (Auto) 0 PT INR APTT Sodium 133 L Potassium 3.9 Chloride 98 Carbon Dioxide 26 BUN 16 Creatinine 0.63 Estimated GFR > 60 BUN/Creatinine Ratio 25.4 H Glucose 146 H Lactate 2.1 Calcium 10.0 Magnesium 1.9 Total Bilirubin 1.3 AST 22 ALT 17 Alkaline Phosphatase 70 Total Creatine Kinase 82 Troponin I < 0.012 NT-Pro-B Natriuret Pep 395 Total Protein 7.5 Albumin 4.5 Globulin 3.0 Albumin/Globulin Ratio 1.5 Lipase 65 Procalcitonin 0.07 TSH Urine RBC None seen Urine WBC 1-5/hpf Ur Squamous Epith Cells 5-10 /hpf H Urine Bacteria Many (>30) H Ur Culture Indicated? Specimen cultured Vol Urine Centrifuged 10ml (spun) 04/09/29/23 09/29/23 15:40 15:54 21:19 WBC RBC Hgb Hct MCV MCH MCHC RDW Plt Count Neut % (Auto) Lymph % (Auto) [place] % (Auto) Eos % (Auto) Baso % (Auto) Neut # (Auto) Lymph # (Auto) [place] # (Auto) Eos # (Auto) Baso # (Auto) PT 13.6 H INR 1.2 APTT 37 H 161 H* D Sodium Potassium Chloride Carbon Dioxide BUN Creatinine Estimated GFR BUN/Creatinine Ratio Glucose Lactate 1.0 Calcium Magnesium Total Bilirubin AST ALT Alkaline Phosphatase Total Creatine Kinase Troponin I NT-Pro-B Natriuret Pep Total Protein Albumin Globulin Albumin/Globulin Ratio Lipase Procalcitonin TSH Urine RBC Urine WBC Ur Squamous Epith Cells Urine Bacteria Ur Culture Indicated? Vol Urine Centrifuged 09/30/23 05:00 WBC 14.4 H RBC 4.54 Hgb 14.8 Hct 44.1 MCV 97.0 MCH 32.6 MCHC 33.6 RDW 13.3 Plt Count 337 Neut % (Auto) 91.1 H Lymph % (Auto) 2.4 L [place] % (Auto) 6.3 Eos % (Auto) 0.0 L Baso % (Auto) 0.2 Neut # (Auto) 99748 H Lymph # (Auto) 300 L [place] # (Auto) 900 Eos # (Auto) 0 Baso # (Auto) 0 PT INR APTT 75 H* D Sodium 140 Potassium 4.1 Chloride 107 Carbon Dioxide 28 BUN 17 Creatinine 0.54 Estimated GFR > 60 BUN/Creatinine Ratio 31.5 H Glucose 155 H Lactate Calcium 9.4 Magnesium Total Bilirubin AST ALT Alkaline Phosphatase Total Creatine Kinase Troponin I NT-Pro-B Natriuret Pep Total Protein Albumin Globulin Albumin/Globulin Ratio Lipase Procalcitonin TSH 0.76 Urine RBC Urine WBC Ur Squamous Epith Cells Urine Bacteria Ur Culture Indicated? Vol Urine Centrifuged [facility] Surgical History (Updated 09/30/23 @ 08:49 by Yan Lomeli MD) History of appendectomy H/O: hysterectomy Social History household members: none Smoking Status: Never smoker alcohol intake: current Assessment & Plan Assessment & Plan narrative: 1. Afib with RVR present on admission and improved. Echo today. 2. SBO, present on admission and active. 3. Likely mild aspiration pneumonia. rt middle lobe opacity on CT. Present on admission and active. 4. Urinary bacteria on UA without clinical UTI symptoms. 5. leukocytosis due to SBO +/- pneumonia. 6. partial filling defect rt CFV and iliac veins likely artifactual since no unilateral leg swelling or pain. PLAN: -IV heparin for afib stroke prevention -Telemetry - now off dilt drip and monitor rate control. -ECHO today. -continue Rocephin IV, started in ED for possible pneumonia -IV morphine prn abdominal pain -Zofran prn -NS 100 cc/hr -NPO -surgical take to the operating room today for a laparotomy. -f/u urine and blood cx -AM labs are stable. She is full resuscitation.
--- NOTE | 2023-09-30 08:09 | DI.ECHO.S_ITS ---
[facility] : : [address] : [place] : : [id number] : : Phone: [phone] Echocardiogram Report + + :Name: VILLA MOORE Study Date: 09/30/2023 Height: 63 in : :[facility] ReadingLocation: Weight: 131 lb : : Gender: Female BSA: 1.6 m2 : :: 1945 Age: 78 yrs BP: 157/98 mmHg: :Reason For Study: ATRIAL FIBRILLATION : :Ordering Physician: YASMIN, : :SHITAL Alaniz Performed By: Sherry Price : :Referring: SHITAL HOFFMAN : + + Interpretation Summary 1) Normal left ventricular thickness, size, wall motion, and systolic function (EF 60-65%). 2) Normal right ventricular size and function. 3) No significant valvular abnormalities. 4) No prior Echo available for comparison. Procedure: A two-dimensional transthoracic echocardiogram with color flow and Doppler was performed. The study quality was technically adequate. There is no prior echocardiogram noted for this patient. The patient was in sinus rhythm with heart rates between 93-100 bpm during the exam. Left Ventricle: The left ventricle is normal in size and wall thickness. The ejection fraction is estimated to be 60-65%. Left ventricular systolic function appears normal without focal wall motion abnormalities. Diastolic parameters suggest a relaxation abnormality of the left ventricle, consistent with probable normal filling pressures. Right Ventricle: The right ventricle is normal in size and function. Atria: The left atrial size is normal. Right atrial size is normal. There is no Doppler evidence for an interatrial shunt. Mitral Valve: The mitral valve is normal in structure and function. There is trace mitral regurgitation. Aortic Valve: The aortic valve is trileaflet. The aortic valve opens well. There is no aortic valve stenosis. There is trace aortic regurgitation. Tricuspid Valve: The tricuspid valve is normal in structure and function. There is mild tricuspid regurgitation. The right ventricular systolic pressure is estimated to be at least 25 mmHg based on an estimated right atrial pressure of 3 mm Hg. Pulmonic Valve: The pulmonic valve leaflets are thin and pliable; valve motion is normal. There is no pulmonic valvular regurgitation. Great Vessels: The aortic root is normal size. The dimensions of the ascending aorta are normal. The IVC is of normal diameter and collapses greater than 50% with a sniff. This suggests a low right atrial pressure of 3 mm Hg. Pericardium/ Pleura There is no pericardial effusion. There is no pleural effusion. MMode/2D Measurements & Calculations LVIDd: 4.7 cm LVOT diam: 1.9 cm LVIDs: 2.8 cm Ao root diam: 2.8 cm FS: 40.6 % asc Aorta Diam: 3.0 cm IVSd: 0.82 cm Ao Arch Diam (Prox Trans): 2.3 cm LVPWd: 0.78 cm LV silvestre. diameter/BSA (cm/m^2): 2.9 LV sys. diameter/BSA (cm/m^2): 1.7 LA A2 area: 18.0 cm2 RA long axis: 4.0 cm LA A4 area: 13.8 cm2 RA area: 10.8 cm2 LA length (vol): 4.3 cm RA vol: 24.7 ml LA vol: 49.2 ml RA : 15.3 ml/m2 LA vol index: 30.5 ml/m2 IVC diam: 1.8 cm RVD1 (basal): 2.8 cm TAPSE: 2.5 cm Doppler Measurements & Calculations Ao V2 max: 118.8 cm/sec LVOT Max Ridge: 98.5 cm/sec Ao V2 mean: 84.8 cm/sec LV V1 max P.9 mmHg Ao max P.6 mmHg LV V1 VTI: 15.9 cm Ao mean P.2 mmHg TANIA(I,D): 2.3 cm2 Ao V2 VTI: 20.6 cm TANIA(V,D): 2.4 cm2 sev ratio: 0.77 TANIA indexed to BSA (cm^2/m^2): 1.4 MV E max ridge: 74.5 cm/sec TR max ridge: 232.5 cm/sec MV A max ridge: 85.8 cm/sec TR max P.6 mmHg MV E/A: 0.87 PA V2 max: 86.0 cm/sec Med Peak E' Ridge: 6.9 cm/sec PA V2 mean: 62.6 cm/sec E/E' med: 10.7 PA mean P.7 mmHg Lat Peak E' Ridge: 8.8 cm/sec PA pr(Accel): 37.9 mmHg E/E' lat: 8.5 E/e' average: 9.6 MV dec time: 0.15 sec SV(LVOT): 46.3 ml Reading Physician:04:24 PM
--- NOTE | 2023-09-30 08:15 | DI.RAD.S_ITS ---
PROCEDURE: XR ABDOMEN 1V INDICATIONS: f/u gastrografin study TECHNIQUE: One view of the abdomen acquired. COMPARISON: [facility], CR, XR GASTROGRAFIN CHALLENGE, 09/29/2023, 20:26. FINDINGS: Surgical changes and devices: Left hip arthroplasty. Bowel: The stomach is markedly dilated. There are several opacified dilated small bowel loops. There is a paucity of gas in the colon loops. No significant progression oral contrast since the prior study. Soft tissues: No suspicious abdominal calcifications. Visualized solid organ contours appear normal in size. Bones: No suspicious bony lesions. IMPRESSION: Increasing dilatation stomach and proximal small bowel loops compared to the prior exam. This implies persistent obstruction or ileus. The patient would likely benefit from nasogastric tube. Dictated by: Heather Reyes M.D. on 09/30/2023 at 8:56 Approved by: Heather Reyes M.D. on 09/30/2023 at 8:58
--- NOTE | 2023-09-30 08:45 | PM.CN ---
History of Present Illness Consult details Date Patient Seen: 09/30/23 Time Patient Seen: 08:45 Chief complaint: sent by pcp obstruction of bowel Narrative: Hodan Rhodes is a 78-year-old woman in good health who is admitted to the [facility] with a small-bowel obstruction and new onset AFib. She has a history of open hysterectomy performed 40 years ago which was revised and the transvaginal fashion 1 year later with appendectomy. One week ago she had abdominal pain with emesis for several days which she initially attributed to food poisoning. Got slightly better and then symptoms returned 2 days ago. No longer passing gas nauseous and distended. Gastrografin challenge done last night shows no progression of contrast into the colon. A repeat x-ray this morning official read is pending but per my reviewed does not demonstrate any progression. She is developed new onset AFib with RVR currently on heparin drip and diltiazem. She is physically active walks approximately 10,000 steps per day 6 days a week without chest pain shortness of breath. Meds Home Medications and Allergies Home Medications Medication Instructions Recorded Confirmed Type clobetasol 0.05 % scalp solution 1 applic topical DAILY 09/29/23 09/29/23 History estradiol 0.05 mg/24 hr weekly 1 patch topical QWEEK 09/29/23 09/29/23 History transdermal patch finasteride 5 mg tablet 2.5 mg PO DAILY 09/29/23 09/29/23 History risedronate 150 mg tablet (Actonel) 150 mg PO QMONTH 09/29/23 09/29/23 History Allergies Allergy/AdvReac Type Severity Reaction Status Date / Time latex Allergy Rash Verified 09/29/23 11:57 Exam Vital Signs (past 8 hours): - 09/30/23 04:00 Temperature 97.0 F L Pulse Rate 97 H Respiratory Rate 18 Blood Pressure 145/92 H Pulse Oximetry 94 Oxygen Flow Rate 0 Oxygen Delivery Method Room Air Oxygen Flow Rate 0 Narrative Exam Narrative: GENERAL: A well nourished, well developed adult woman, uncomfortable HEENT: Normocephalic, atraumatic. No scleral icterus CHEST: Rising symmetrically. No audible wheezes CARDIOVASCULAR: Warm and well perfused. Regular rate ABDOMEN: Distended no peritonitis EXTREMITIES: Normal tone and without edema. NEUROLOGIC: Moving all extremities spontaneously. No gross motor deficits. Objective Labs 09/30/23 05:00 09/30/23 05:00 Labs: Laboratory Results - last 24 hr 09/29/23 09/29/23 09/29/23 12:05 12:20 12:25 WBC 18.1 H RBC 4.87 Hgb 15.7 Hct 47.3 H MCV 97.0 MCH 32.3 MCHC 33.3 RDW 13.0 Plt Count 351 Neut % (Auto) 92.2 H Lymph % (Auto) 1.1 L [place] % (Auto) 6.6 Eos % (Auto) 0.0 L Baso % (Auto) 0.1 Neut # (Auto) 81259 H Lymph # (Auto) 200 L [place] # (Auto) 1200 H Eos # (Auto) 0 Baso # (Auto) 0 PT INR APTT Sodium 133 L Potassium 3.9 Chloride 98 Carbon Dioxide 26 BUN 16 Creatinine 0.63 Estimated GFR > 60 BUN/Creatinine Ratio 25.4 H Glucose 146 H Lactate 2.1 Calcium 10.0 Magnesium 1.9 Total Bilirubin 1.3 AST 22 ALT 17 Alkaline Phosphatase 70 Total Creatine Kinase 82 Troponin I < 0.012 NT-Pro-B Natriuret Pep 395 Total Protein 7.5 Albumin 4.5 Globulin 3.0 Albumin/Globulin Ratio 1.5 Lipase 65 Procalcitonin 0.07 TSH Urine RBC None seen Urine WBC 1-5/hpf Ur Squamous Epith Cells 5-10 /hpf H Urine Bacteria Many (>30) H Ur Culture Indicated? Specimen cultured Vol Urine Centrifuged 10ml (spun) 09/29/23 09/29/23 09/29/23 15:40 15:54 21:19 WBC RBC Hgb Hct MCV MCH MCHC RDW Plt Count Neut % (Auto) Lymph % (Auto) [place] % (Auto) Eos % (Auto) Baso % (Auto) Neut # (Auto) Lymph # (Auto) [place] # (Auto) Eos # (Auto) Baso # (Auto) PT 13.6 H INR 1.2 APTT 37 H 161 H* D Sodium Potassium Chloride Carbon Dioxide BUN Creatinine Estimated GFR BUN/Creatinine Ratio Glucose Lactate 1.0 Calcium Magnesium Total Bilirubin AST ALT Alkaline Phosphatase Total Creatine Kinase Troponin I NT-Pro-B Natriuret Pep Total Protein Albumin Globulin Albumin/Globulin Ratio Lipase Procalcitonin TSH Urine RBC Urine WBC Ur Squamous Epith Cells Urine Bacteria Ur Culture Indicated? Vol Urine Centrifuged 09/30/23 05:00 WBC 14.4 H RBC 4.54 Hgb 14.8 Hct 44.1 MCV 97.0 MCH 32.6 MCHC 33.6 RDW 13.3 Plt Count 337 Neut % (Auto) 91.1 H Lymph % (Auto) 2.4 L [place] % (Auto) 6.3 Eos % (Auto) 0.0 L Baso % (Auto) 0.2 Neut # (Auto) 27856 H Lymph # (Auto) 300 L [place] # (Auto) 900 Eos # (Auto) 0 Baso # (Auto) 0 PT INR APTT 75 H* D Sodium 140 Potassium 4.1 Chloride 107 Carbon Dioxide 28 BUN 17 Creatinine 0.54 Estimated GFR > 60 BUN/Creatinine Ratio 31.5 H Glucose 155 H Lactate Calcium 9.4 Magnesium Total Bilirubin AST ALT Alkaline Phosphatase Total Creatine Kinase Troponin I NT-Pro-B Natriuret Pep Total Protein Albumin Globulin Albumin/Globulin Ratio Lipase Procalcitonin TSH 0.76 Urine RBC Urine WBC Ur Squamous Epith Cells Urine Bacteria Ur Culture Indicated? Vol Urine Centrifuged [facility] Surgical History (Updated 09/30/23 @ 08:49 by Yan Lomeli MD) History of appendectomy H/O: hysterectomy Social History household members: none Tobacco & Substance Use Smoking Status: Never smoker alcohol intake: current Assessment & Plan Assessment and plan (1) Small bowel obstruction: Status: Acute Assessment & Plan narrative: 78-year-old healthy woman history of hysterectomy with a small-bowel obstruction failing to resolve with conservative management with new onset AFib with RVR. Her obstruction is likely due to adhesive disease and gastrografin challenge shows no progression of contrast. She is unlikely to resolve without surgical intervention. I recommended proceeding with exploratory laparotomy, possible bowel resection. Overview of the operation was discussed. Operative risks including infection, hemorrhage, anastomotic leak, damage to surrounding structures, aspiration and rare but serious complications such as myocardial infarction stroke and were reviewed. Following discussion she elects to proceed. Exlap 09/29 Discontinue Heparin gtt 2 hrs preop
--- NOTE | 2023-09-30 09:34 | PC.NURSE ---
Day shift: Surgery planned for earlier today (at noon approx) and stop heparin drip now per Dr Lomeli.
[2023-09-30] MEDS: LACTATED RINGERS 1,000 ML 42 ML IV ×2 (10:46→12:03)
--- NOTE | 2023-09-30 10:51 | PC.NURSE ---
Day shift: Left unit (approx 1040) for pre-op for procedure today. NG placed just prior and Pt tolerated well.
--- NOTE | 2023-09-30 11:41 | PC.NURSE ---
Day shift: Pt remains off unit for procedure. technical documentation specialist made aware. Plans to perform echo at 1500 today.
[2023-09-30] MEDS: PIPERACILLIN/TAZO 3.375 GM in SODIUM CHLORIDE 0.9% 100 ML IV (11:47)
[2023-09-30] MEDS: BUPIVACAINE 0.25% (PF) VIAL 30 ML INJ (11:49)
[2023-09-30] MEDS: BUPIVACAINE LIPOSOME 266 MG/20 ML VIAL INJ (12:05)
--- NOTE | 2023-09-30 12:14 | PM.OP.1 ---
Operative Date/Time/Diagnoses Date of procedure: 09/30/23 Time of procedure: 12:14 Pre-op diagnosis: Small-bowel obstruction Post-op diagnosis: same Procedure & Clinicians Procedure: Exploratory laparotomy Enterectomy Same procedure as scheduled: Yes Indications: 78-year-old woman with a history of open hysterectomy 40 years ago presents with a small-bowel obstruction. Obstruction failed to you resolve with conservative management/Gastrografin challenge. Following discussion of the risks benefits alternatives she elected to proceed with exploratory laparotomy. Surgeon: Yan Lomeli Finance Insurance Manager: Lavon Ramirez Anesthesia Type: General Operative Notes Findings: Single band of tight adhesion right lower quadrant Adhesion had caused a near full thickness injury in circumferential fashion to the small bowel. Specimen(s): other (Small-bowel) Estimated Blood Loss (mL): 20 Procedure in detail: Patient was brought to the operating room placed supine on the table. Bilateral lower extremity compression devices were applied. General anesthesia was induced and she was intubated with a endotracheal tube in our site fashion. Florentino catheter was sterilely placed. She was then prepped and draped in sterile fashion. Time-out was performed. A lower midline laparotomy was made. Subcutaneous tissue was divided. The fascia was grasped elevated sharply incised the abdomen was entered atraumatically. Small bowel was eviscerated. Within the right lower quadrant there was a single tight band of adhesive tissue which was lysed releasing the obstruction. On examination this chronic band of adhesion had caused a near full-thickness circumferential ischemic injury to the small bowel. We performed a small-bowel resection, length was less than 10 cm. A window within the mesentery on either side of the specimen was made in the mesentery. The bowel was then divided using the linear stapler 75 mm blue load. Crotch stitch was then placed with silk suture. An enterotomy was made in each limb and then the 2 limbs were joined together using a 3rd staple load. We inspected the common channel it was widely patent and hemostatic. Common opening was then closed in a running fashion using 3-0 PDS suture. The suture line was imbricated using silk suture. The mesenteric defect was closed using interrupted silk. We tested the anastomosis there was no evidence of leak. It was well perfused and without any tension. Small bowel was then returned to the abdomen. The abdomen was copiously lavaged with sterile saline. A mixture of 0.25% bupivacaine and Exparel was injected into the peritoneum. The sponge and instrument count was correct x2. The fascia was then closed in a running manner using looped PDS suture. The subcutaneous tissue was reapproximated using 3-0 Vicryl. Skin was closed with deysi. She tolerated the operation well was extubated and transferred to recovery in stable condition. Complications: none Post-operative Condition: stable Disposition: Acute Care
[2023-09-30] MEDS: ACETAMINOPHEN IV 1,000 MG/100 ML VIAL 400 MG IV (12:15)
--- NOTE | 2023-09-30 14:04 | PC.NURSE ---
Day shift: Back in room at 1315 from PACU. ABD Aquacel with dime sized shadow on the distal portion. VS WNL. RA 97%. NG set up to wall suction at low intermittent per MD orders. Westfall patent draining clear yellow and that westfall was placed in surgery. Tolerating SCD's. Pt states I am feeling so much better. Call light in reach and agrees to not get OOB w/o help from staff.
[2023-09-30 14:28] LABS: PTT Partial Thromboplastin Tim 36 SECONDS (25.1-36.5)
--- NOTE | 2023-09-30 14:30 | PC.NURSE ---
Day shift: Per Dr Simpson, plan to restart IV heparin drip at 1600 today. Lab results pending for Ptt.
--- NOTE | 2023-09-30 15:26 | CM.DANOTE ---
Initial DCP Assessment Note Pt is a 78 yo female, resident of [place], presents with SBO that has failed conservative treatment, admitted for management and scheduled for exlap, possible resection with Dr Lomeli. PCP: Swapna Gillespie Payer: [employer] Reviewed chart, pt discussed in multidisciplinary rounds this morning. Patient is indp in all aspects, active at baseline. Attempted bedside assessment and patient being taken to the OR. No barriers identified at this time to patient's safe discharge home w/friends and family to assist; close outpatient f/u recommended. CM team will plan to follow closely in case any DC needs or concerns arise. TRISTIN Cowan Discharge Planning/Care Management Advanced directive, confirm from FAMILY Start: 09/29/23 20:35 Freq: Q24H Status: Active Protocol: Document 09/29/23 21:25 AKP (Rec: 09/29/23 21:26 AKP [id number]) Advance Directive, confirm on record Time 21:26 Person contacted patient to ask family to bring in Copy received No CM Discharge Assessment Start: 09/30/23 15:25 Freq: Status: Active Protocol: Document 09/30/23 15:25 BARTOLOME (Rec: 09/30/23 15:26 JW [id number]) Discharge Planning Assessment Assigned Talent Development Coordinator TRISTIN Jack DPOA/Assigned Designee Name sister Comer Contact Information [phone] Advance Directives? Yes: on file at [facility]. Advance Directives on File No History Provided By Patient,Medical Record Prior Living Arrangements House Household Members none Type of transporation used prior to Drives own vehicle admit Independent with ADL's Yes Is patient alert and oriented? Yes Barriers to Discharge No Discharge Plan Home Transportation Arrangement Friends or family Referrals Initiated None needed
[2023-09-30] MEDS: HEPARIN DRIP 25,000 UNIT/500 ML IV.SOLN 14 UNIT IV (16:03)
[2023-09-30 22:34] LABS: Add Manual Diff / Slide Review NO; Basophils Absolute Auto 0 /uL (0-100); Basophils Percent Auto 0.1 % (0-2); Eosinophils Absolute Auto 0 /uL (0-450); Hematocrit 37.5 % (36-46); Hemoglobin 12.5 g/dL (12.0-16.0); Lymphocytes Absolute Auto 200 /uL (1100-4500); Lymphocytes Percent Auto 2.2 % (25-40); Mean Corpuscular HGB Conc 33.4 % (30-36); Mean Corpuscular Hemoglobin 32.6 PG (26-34); Mean Corpuscular Volume 97.8 fL (80-100); Monocytes Absolute Auto 700 /uL (0-900); Monocytes Percent Auto 6.3 % (3-14); Neutrophils Absolute Auto 9900 /uL (1500-7000); Neutrophils Percent Auto 91.4 % (50-75); Platelet Count 299 X10^3/uL (150-400); Red Blood Cell Count 3.84 X10^6/uL (4.0-5.2); White Blood Cell Count 10.9 X10^3/uL (4.5-11.0)
[2023-09-30 22:48] LABS: PTT Partial Thromboplastin Tim 60 SECONDS (25.1-36.5)
[2023-09-30] MEDS: MORPHINE 2 MG/ML INJ IV (23:34)
[2023-10-01 00:16] VITALS: BP 114/69; PULSE 95; RESP 16; TEMP 35.9; O2SAT 96
[2023-10-01] MEDS: HEPARIN DRIP 25,000 UNIT/500 ML IV.SOLN 15 UNIT IV (03:53)
[2023-10-01 04:21] LABS: Add Manual Diff / Slide Review NO; Basophils Absolute Auto 0 /uL (0-100); Basophils Percent Auto 0.3 % (0-2); Eosinophils Absolute Auto 0 /uL (0-450); Eosinophils Percent Auto 0.3 % (2-4); Hematocrit 36.3 % (36-46); Lymphocytes Absolute Auto 400 /uL (1100-4500); Mean Corpuscular Hemoglobin 32.4 PG (26-34); Monocytes Absolute Auto 400 /uL (0-900); Monocytes Percent Auto 4.9 % (3-14); Neutrophils Absolute Auto 7900 /uL (1500-7000); Neutrophils Percent Auto 89.5 % (50-75); Platelet Count 276 X10^3/uL (150-400); Red Cell Distribution Width 13.4 % (11.6-14.8); White Blood Cell Count 8.8 X10^3/uL (4.5-11.0)
[2023-10-01 04:30] LABS: PTT Partial Thromboplastin Tim 50 SECONDS (25.1-36.5)
[2023-10-01 04:32] LABS: BUN Creatinine Ratio 25.5 (6-22); Blood Urea Nitrogen 14 mg/dL (7-17); Calcium 7.9 mg/dL (8.4-10.2); Carbon Dioxide 29 mmol/L (22-32); Chloride 110 mmol/L (98-107); Estimated Glomerular Filt Rate > 60 mL/min (>60); Glucose 119 mg/dL (80-110); HEMOLYSIS < 15 (0-50); Potassium 4.2 mmol/L (3.4-5.1); Sodium 139 mmol/L (137-145)
[2023-10-01 05:17] VITALS: BP 104/60; PULSE 89; RESP 16; TEMP 36.3; O2SAT 97
[2023-10-01] MEDS: HEPARIN 5,000 UNIT/ML VIAL 3000 UNIT IV (05:23)
[2023-10-01] MEDS: SODIUM CHLORIDE 0.9% 1,000 ML 100 ML IV ×2 (06:18→20:56)
[2023-10-01 08:00] VITALS: BP 103/57; PULSE 93; RESP 16; TEMP 36.9; O2SAT 95
--- NOTE | 2023-10-01 08:00 | P.PN_ITS ---
Subjective Subjective Interval history: Subjective: She is doing well today. Minimal abdominal pain. Some abdominal rumbling but no flatus. No nausea or vomiting. No chest pain or dyspnea. She underwent a laparotomy yesterday with an adhesion release and a limited small bowel resection at that site of compression. Dr. Owens, general surgery, is all right with starting oral anticoagulation today. Exam Vital Signs (past 8 hours): - 10/01/23 00:16 10/01/23 05:17 Temperature 96.6 F L 97.4 F L Pulse Rate 95 H 89 Respiratory Rate 16 16 Blood Pressure 114/69 104/60 Pulse Oximetry 96 97 Oxygen Flow Rate 0 0 Oxygen Delivery Method Room Air Oxygen Flow Rate 0 Narrative Exam Narrative: NAD, alert and oriented. Fluent speech. Lungs are clear, normal rate and effort. Heart is regular, no murmur gallop or rub. Abdomen is soft, non distended. Wound is dressed. Positive bowel tones. Extremities are free of edema. Objective Imaging Echo: Radiologist's impression: 1) Normal left ventricular thickness, size, wall motion, and systolic function (EF 60-65%). 2) Normal right ventricular size and function. 3) No significant valvular abnormalities. 4) No prior Echo available for comparison. Abdominal x-ray: Radiologist's impression: Increasing dilatation stomach and proximal small bowel loops compared to the prior exam. This implies persistent obstruction or ileus. The patient would likely benefit from nasogastric tube. Labs 10/01/23 04:10 10/01/23 04:10 Labs: Laboratory Results - last 24 hr 09/30/23 09/30/23 10/01/23 13:49 22:15 04:10 WBC 10.9 8.8 RBC 3.84 L 3.70 L Hgb 12.5 12.0 Hct 37.5 36.3 MCV 97.8 98.0 MCH 32.6 32.4 MCHC 33.4 33.0 RDW 13.0 13.4 Plt Count 299 276 Neut % (Auto) 91.4 H 89.5 H Lymph % (Auto) 2.2 L 5.0 L [place] % (Auto) 6.3 4.9 Eos % (Auto) 0.0 L 0.3 L Baso % (Auto) 0.1 0.3 Neut # (Auto) 9900 H 7900 H Lymph # (Auto) 200 L 400 L Gillespie # (Auto) 700 400 Eos # (Auto) 0 0 Baso # (Auto) 0 0 APTT 36 D 60 H D 50 H D Sodium 139 Potassium 4.2 Chloride 110 H Carbon Dioxide 29 BUN 14 Creatinine 0.55 Estimated GFR > 60 BUN/Creatinine Ratio 25.5 H Glucose 119 H Calcium 7.9 L PFSH Surgical History History of appendectomy H/O: hysterectomy Social History household members: none Smoking Status: Never smoker alcohol intake: current Assessment & Plan Assessment & Plan narrative: 1. Afib with RVR present on admission and improved rate control. 2. SBO, present on admission and active. S/P surgery. 3. Possible mild aspiration pneumonia. R middle lobe opacity on CT. Present on admission and active. 4. Urinary bacteria on UA without clinical UTI symptoms. 5. partial filling defect rt CFV and iliac veins likely artifactual since no unilateral leg swelling or pain. PLAN: -stop IV heparin and start oral Eliquis today for atrial fibrillation. Discussed with surgery. -Telemetry - monitor rate control. -continue Rocephin IV, started in ED for possible pneumonia. Follow cultures. -we will discuss diet advanced as surgery today. She is full resuscitation. Estimated date of discharge is October 02.
[2023-10-01] MEDS: APIXABAN 5 MG TABLET PO ×2 (09:57→20:34)
[2023-10-01 11:19] LABS: PTT Partial Thromboplastin Tim 42 SECONDS (25.1-36.5)
--- NOTE | 2023-10-01 11:34 | CM.DPC ---
DCP Cont Reviewed chart. Patient discussed in multidisciplinary rounds. Patient is POD 1 from an exlap with Dr Lomeli, adhesion release with slight resection per Dr Simpson. Plan remains discharge home w/family w/close outpatient follow up. CM team following clinical course closely in case any discharge needs or concerns arise. BARTOLOME
--- NOTE | 2023-10-01 11:37 | PC.NURSE ---
Day shift: TRENA Florentino removed per MD orders at approx 1100 today. Due to void by 1900 today. Will continue to monitor.
[2023-10-01 12:00] VITALS: BP 103/54; PULSE 95; RESP 18; TEMP 36.9; O2SAT 95
[2023-10-01] MEDS: HYDROCODONE/ACET 10/325 TABLET 1 TAB PO (14:29)
[2023-10-01 16:00] VITALS: BP 129/89; PULSE 91; RESP 16; TEMP 37.2; O2SAT 93
[2023-10-01 20:05] VITALS: BP 129/71; PULSE 92; RESP 16; TEMP 36.8; O2SAT 94
[2023-10-02] VITALS (7 sets, daily range): BP systolic 104–143; BP diastolic 60–81; PULSE 77–90; RESP 16–20; TEMP 36.2–37.3; O2SAT 93–98
[2023-10-02 05:20] LABS: Hematocrit 32.5 % (36-46); Hemoglobin 10.9 g/dL (12.0-16.0)
--- NOTE | 2023-10-02 05:56 | PC.NURSE ---
scrap hoist operator: Patient is AxOx4, VSS, denies pain. States that she is experiencing acid reflux from having beef broth earlier today, did not tolerate well. Denies nausea/vomiting. Tolerating sips of water but having decreased PO intake, patient also experiencing low urine output. Notified MD Swanson, restarted IVF. Midline incision covered w/ aquacel is CDI with small amount of shadow drainage. OOB w/ SBA to the bathroom. Oriented to call-light. Plan of care ongoing.
[2023-10-02] MEDS: SODIUM CHLORIDE 0.9% 1,000 ML 100 ML IV ×2 (06:33→20:19)
[2023-10-02] MEDS: APIXABAN 5 MG TABLET PO ×2 (09:04→20:12)
[2023-10-02] MEDS: METOPROLOL ER 25 MG TABLET PO (10:43)
--- NOTE | 2023-10-02 15:12 | PM.PN.1 ---
Subjective Subjective Interval history: General surgery advancing diet to full liquids today. Patient feeling much better overall. Family present in room and questions were answered. Exam Vital Signs (past 8 hours): - 10/02/23 08:00 10/02/23 10:43 10/02/23 11:30 Temperature 97.8 F Pulse Rate 90 90 86 Respiratory Rate 17 20 Blood Pressure 120/66 120/66 107/69 Pulse Oximetry 93 96 Oxygen Flow Rate 0 0 Oxygen Delivery Method Room Air Oxygen Flow Rate 0 Narrative Exam Narrative: NAD, alert and oriented. Fluent speech. Lungs are clear, normal rate and effort. Heart is regular, no murmur gallop or rub. Abdomen is soft, non distended. Wound is dressed. Positive bowel tones. Extremities are free of edema. Objective Labs 10/02/23 04:45 10/01/23 04:10 Labs: Laboratory Results - last 24 hr 10/02/23 04:45 Hgb 10.9 L Hct 32.5 L PFSH Surgical History History of appendectomy H/O: hysterectomy Social History household members: none Smoking Status: Never smoker alcohol intake: current Assessment & Plan Assessment & Plan narrative: 1. Afib with RVR present on admission and improved rate control. 2. SBO, present on admission and active. S/P surgery. 3. Possible mild aspiration pneumonia. R middle lobe opacity on CT. Present on admission and active. 4. Urinary bacteria on UA without clinical UTI symptoms. 5. partial filling defect rt CFV and iliac veins likely artifactual since no unilateral leg swelling or pain. PLAN: -continue eliquis and add metoprolol for rate control -Telemetry - monitor rate control. -advance diet to full liquids per gen surg She is full resuscitation. Dispo: Home on 10/02 likely.
--- NOTE | 2023-10-02 20:28 | PM.PNPO.1 ---
Subjective Subjective Date Patient Seen: 10/02/23 Time Patient Seen: 20:28 Interval history: Postop day 2 status post ex lap small bowel resection for SBO Tolerating liquids. + Bowel movement flatus Exam Vital Signs (past 8 hours): - 10/02/23 15:00 10/02/23 19:45 Temperature 97.6 F 97.9 F Pulse Rate 77 78 Respiratory Rate 18 16 Blood Pressure 119/60 104/64 Pulse Oximetry 98 93 Oxygen Flow Rate 0 0 Oxygen Delivery Method Room Air Oxygen Flow Rate 0 Narrative Exam Narrative: General adult woman alert oriented no acute distress Chest nonlabored respiration Abdomen soft appropriately tender to palpation. Midline dressing clean and intact. Objective Labs 10/02/23 04:45 10/01/23 04:10 Labs: Laboratory Results - last 24 hr 10/02/23 04:45 Hgb 10.9 L Hct 32.5 L PFSH Surgical History History of appendectomy H/O: hysterectomy Social History household members: none Smoking Status: Never smoker alcohol intake: current Assessment & Plan Post-op Postoperative Procedures: Procedures Operation Date: 09/30/23 17:30 Actual Procedure Side Surgeon p Exploratory Laparotomy WITH SMALL BOWEL RESECTION Yan Lomeli MD Postoperative plan narrative: 78-year-old woman postoperative day 2 status post ex lap small bowel resection for SBO. Doing well progressing as expected. Has return of bowel function -advance to regular diet -discharge home tomorrow 10/02 -follow up 2 weeks [facility]
[2023-10-03 01:00] VITALS: BP 113/71; PULSE 80; RESP 16; TEMP 36.4; O2SAT 95
[2023-10-03 04:20] VITALS: BP 112/66; PULSE 77; RESP 16; TEMP 36.2; O2SAT 94
[2023-10-03 05:17] LABS: Hemoglobin 10.5 g/dL (12.0-16.0)
[2023-10-03] MEDS: SODIUM CHLORIDE 0.9% 1,000 ML 100 ML IV (07:05)
[2023-10-03 08:00] VITALS: BP 130/68; PULSE 81; RESP 17; TEMP 36.4; O2SAT 94
[2023-10-03 08:56] VITALS: BP 130/68; PULSE 81
[2023-10-03] MEDS: METOPROLOL ER 25 MG TABLET PO (08:56)
[2023-10-03] MEDS: APIXABAN 5 MG TABLET PO (08:57)
--- NOTE | 2023-10-03 10:06 | PC.NURSE ---
Addendum entered by Israel Samson R.N. 10/03/23 12:41: PT's IV d/c'd intact per protocol. Discharge instructions given to Pt and family. Pt dressed and readied for d/c. Escorted to family car via w/c. Original Note: Pt a&o offers no overt c/o of pain or bloating. Up in room with SBA d.t. IV pole. Taking small amount of B'fast. Up BR small loose stool. BT's hypoactive. Pt expecting to go home today.
--- NOTE | 2023-10-03 10:23 | PM.DS.1 ---
History of Present Illness History of Present Illness Chief complaint: sent by pcp obstruction of bowel Narrative: Pt is 78 yo female with hx hysterectomy, no other abdominal surgeries, presents with c/o abdominal pain x 1 week. She started vomiting episodes 5 days ago, last BM yesterday. She has no history of heart problems. She was noted to be in afib with RVR, rate 170 bpm in ED. She denies any palpitations, chest pain or dyspnea. CT showed small bowel obstruction with transition in RLQ. Right middle lobe lung opacities suspicious for pneumonia, partial filling defect right CFV and iliac veins - artifact vs DVT. Pt denies fever, cough, dyspnea, leg swelling. Hasn't had urinary symptoms. Dr Lomeli consulted from ED. For afib she was started on diltiazem drip and later converted to sinus on her own. K and Mg are nl. WBC 18k, nl lactate. EKG personally reviewed and shows afib without ST abnormality. Troponin nl. Discharge Providers Provider Date of admission: 09/29/23 17:16 Discharge Date: 10/03/23 Primary care physician: Swapna Gillespie DO Consults: 09/29/23 16:54 Consult to Physician Stat Comment: Consulting Provider: Willy Peraza Reason for consultation: admit Has provider been notified: Yes 09/29/23 18:59 Consult to Physician Routine Comment: Consulting Provider: Yan Lomeli Reason for consultation: SBO Has provider been notified: Yes Discharge provider: Jorge A Vee DO Summary Hospital Course Discharge Diagnosis: 1. Afib with RVR present on admission and improved rate control. Echo reassuring with EF 60-65% and normal. 2. SBO, present on admission and active. S/P surgery. Now having BM's. 3. Possible mild aspiration pneumonia. R middle lobe opacity on CT. Present on admission and active. 4. Urinary bacteria on UA without clinical UTI symptoms. 5. partial filling defect rt CFV and iliac veins likely artifactual since no unilateral leg swelling or pain. Hospital Course: Admitted for SBO and A-fib RVR new-onset. Converted back to NSR and placed on metoprolol XL and heparin drip. Underwent surgery to lyse adhesions and her SBO resolved. She began eating and having BM's. Transitioned to eliquis plus metoprolol. She will f/up with gen surg in clinic and her PCP for cardiology referral. Exam Vital Signs (past 8 hours): - 10/03/23 04:20 10/03/23 08:00 10/03/23 08:56 Temperature 97.1 F L 97.5 F L Pulse Rate 77 81 81 Respiratory Rate 16 17 Blood Pressure 112/66 130/68 130/68 Pulse Oximetry 94 94 Oxygen Flow Rate 0 Oxygen Delivery Method Room Air Oxygen Flow Rate 0 Narrative Exam Narrative: NAD, alert and oriented. Fluent speech. Lungs are clear, normal rate and effort. Heart is regular, no murmur gallop or rub. Abdomen is soft, non distended. Wound is dressed. Positive bowel tones. Extremities are free of edema. Objective Labs 10/03/23 04:40 10/01/23 04:10 Labs: Laboratory Results - last 24 hr 10/03/23 04:40 Hgb 10.5 L PFSH Surgical History History of appendectomy H/O: hysterectomy Social History household members: none Smoking Status: Never smoker alcohol intake: current Discharge Plan Discharge Plan Patient Disposition: Home Provider Discharge Comment: -Okay to shower tomorrow with dressing in place -remove dressing ThursdayOctober 04 okay to leave incision open to air or gauze and tape -Do not submerge wounds in water until seen in follow-up. -No lifting >10 lbs x 4 weeks. -Walking only for exercise for 4 weeks. -No driving while taking narcotics. Discharge orders & Medications Prescriptions: New Eliquis 5 mg Tablet 5 mg PO BID Qty: 60 0RF metoprolol succinate 25 mg Tablet Extended Release 24 Hr 25 mg PO DAILY Qty: 30 0RF Continued estradiol 0.05 mg/24 hr patch weekly 1 patch topical QWEEK Rx Instructions: change patch on Mondays clobetasol 0.05 % solution 1 applic topical DAILY finasteride 5 mg Tablet 2.5 mg PO DAILY risedronate [Actonel] 150 mg Tablet 150 mg PO QMONTH Rx Instructions: administer at least 30 minutes before the first food or drink of the day other than water. Follow up/Referrals: Swapna Gillespie DO [Primary Care Provider] - 2 Weeks Yan Lomeli MD [Physician] - 2 Weeks Diet/Activity/Treatments Diet: Regular Skin/Wound/Dressing Care Report to your healthcare provider any signs of infection, such as:: chills, fever, increased pain, unusual drainage and unusual redness Visit Report/Discharge Packet Stand Alone Forms: Patient Portal/API, Stroke Signs & Symptoms Discharge Data Primary Care Provider: Swapna Gillespie
--- NOTE | 2023-10-03 10:41 | CM.DPC ---
DCP Continued Reviewed EMR and team rounds for pt?s medical status. Per hospitalist, pt will dc today, 10/02. ANALYTICAL DATA SCIENTIST met with pt at bedside, introduced self and role. Pt explains she is eager to dc home and her children will be arriving at 1100 to transport home. Plan: Discharge home with family, No other identified dc needs at this time. ESTRELLA Hannon
--- NOTE | 2023-10-03 11:23 | PM.PN.1 ---
Subjective Subjective Date Patient Seen: 10/03/23 Time Patient Seen: 11:24 Interval history: Feels well. Tolerating oral intake and passing gas and stool. Exam Vital Signs (past 8 hours): - 10/03/23 04:20 10/03/23 08:00 10/03/23 08:56 Temperature 97.1 F L 97.5 F L Pulse Rate 77 81 81 Respiratory Rate 16 17 Blood Pressure 112/66 130/68 130/68 Pulse Oximetry 94 94 Oxygen Flow Rate 0 Oxygen Delivery Method Room Air Oxygen Flow Rate 0 Const General: comfortable Resp Effort & Inspection: normal respiratory effort Objective Labs 10/03/23 04:40 10/01/23 04:10 Labs: Laboratory Results - last 24 hr 10/03/23 04:40 Hgb 10.5 L PFSH Surgical History History of appendectomy H/O: hysterectomy Social History household members: none Smoking Status: Never smoker alcohol intake: current Assessment & Plan Assessment and plan (1) Small bowel obstruction: Status: Acute Plan Okay to discharge home.
== END 2023-10-03 12:21 | disposition home or self-care (01) | DRG 329 ==
LOC: ED 15:28 → AC 17:17
PROVIDERS: Hospitalist; Student in an Organized Health Care Education/Training Program; Surgery; Admitting Provider Internal Medicine; Emergency Provider Emergency Medicine; PCP Family Medicine; Referring Provider Emergency Medicine; Visit Provider Internal Medicine
PROC: 0DB80ZZ Excision of Small Intestine, Open Approach (ICD-10-PCS; CPT 49000; principal; 2023-09-30 17:30)
DX: K56.50 Intestinal adhesions [bands], unspecified as to partial versus complete obstruction (principal); J69.0 Pneumonitis due to inhalation of food and vomit; K55.8 Other vascular disorders of intestine; I48.91 Unspecified atrial fibrillation; Z79.01 Long term (current) use of anticoagulants
CPT/HCPCS: 36415; 71045; 74018; 74177; 80048; 80053; 81003; 81015; 82550; 83605; 83690; 83735; 83880; 84145; 84443; 84484; 85014; 85018; 85025; 85610; 85730; 87040; 87086; 93005; 93306; 96365; 96366; 96367; 96368; 96375; 99284; 99291; C9290; J0136; J0330; J0696; J1100; J1170; J1644; J2270; J2405; J2543; J2704; J3010; Q9967

== ENCOUNTER → 2024-02-02 09:05 | Outpatient (CLI) | payer MEDICARE, OTHER, SELFPAY ==
[2023-09-29 20:24] VITALS: BMI 23.3
[2024-02-02 10:16] LABS: Appearance Urine UA CLEAR; Bilirubin Urine UA NEGATIVE (NEGATIVE); Color Urine UA YELLOW; Glucose Urine UA NEGATIVE (Negative); Ketones Urine UA NEGATIVE (NEGATIVE); Leukocyte Esterase Urine UA NEGATIVE (NEGATIVE); Nitrite Urine UA NEGATIVE (Negative); Occult Blood Urine UA NEGATIVE (Negative); Protein Urine UA NEGATIVE (Negative); Specific Gravity Urine UA <=1.005 (1.000-1.035); Urobilinogen Urine UA 0.2 E.U./dL (0.2)
[2024-02-02 10:19] LABS: Add Manual Diff / Slide Review NO; Basophils Absolute Auto 0 /uL (0-100); Basophils Percent Auto 0.6 % (0-2); Eosinophils Absolute Auto 200 /uL (0-450); Eosinophils Percent Auto 2.9 % (2-4); Hematocrit 41.4 % (36-46); Hemoglobin 13.8 g/dL (12.0-16.0); Lymphocytes Absolute Auto 1100 /uL (1100-4500); Lymphocytes Percent Auto 16.8 % (25-40); Mean Corpuscular HGB Conc 33.3 % (30-36); Mean Corpuscular Hemoglobin 32.4 PG (26-34); Mean Corpuscular Volume 97.4 fL (80-100); Monocytes Absolute Auto 600 /uL (0-900); Monocytes Percent Auto 9.2 % (3-14); Neutrophils Absolute Auto 4400 /uL (1500-7000); Neutrophils Percent Auto 70.5 % (50-75); Platelet Count 355 X10^3/uL (150-400); Red Blood Cell Count 4.25 X10^6/uL (4.0-5.2); Red Cell Distribution Width 14.3 % (11.6-14.8); White Blood Cell Count 6.3 X10^3/uL (4.5-11.0)
[2024-02-02 10:20] LABS: pH Urine UA 5.5 (4.5-8.0)
[2024-02-02 10:21] LABS: Urine Volume 10mL (spun)
[2024-02-02 10:23] LABS: Bacteria Urine None Seen; Culture Indicated Urine Cult Not Indicated; RBC Urine None Seen (0-5/HPF); Squamous Epithelial Cell Urine None Seen (0-5/HPF); WBC Urine None Seen (0-5/HPF)
[2024-02-02 10:56] LABS: BUN Creatinine Ratio 16.3 (6-22); Blood Urea Nitrogen 8 mg/dL (7-17); Calcium 9.1 mg/dL (8.4-10.2); Carbon Dioxide 26 mmol/L (22-32); Chloride 106 mmol/L (98-107); Estimated Glomerular Filt Rate > 60 mL/min (>60); Glucose 94 mg/dL (80-110); HEMOLYSIS < 15 (0-50); Sodium 138 mmol/L (137-145)
== END ==
PROVIDERS: PCP Family Medicine; Referring Provider Orthopaedic Surgery; Visit Provider Orthopaedic Surgery
DX: Z01.812 Encounter for preprocedural laboratory examination (principal); R73.9 Hyperglycemia, unspecified; M25.562 Pain in left knee; N39.0 Urinary tract infection, site not specified
CPT/HCPCS: 36415; 80048; 81001; 83036; 85025

== ENCOUNTER 2024-02-09 06:09 | Day surgery (SDC) | payer MEDICARE, OTHER, SELFPAY ==
[2023-09-29 20:24] VITALS: BMI 23.3
[2024-02-04 10:49] VITALS: BMI 23.9
[2024-02-09] VITALS (7 sets, daily range): BP systolic 103–130; BP diastolic 53–78; PULSE 69–92; RESP 14–21; TEMP 36.2–36.9; O2SAT 96–99; BMI 22.3
[2024-02-09] MEDS: LACTATED RINGERS 1,000 ML 42 ML IV (07:14)
[2024-02-09] MEDS: ACETAMINOPHEN 325 MG TABLET 975 MG PO (07:14)
[2024-02-09] MEDS: VANCOMYCIN 1,000 MG/200 ML PIGGYBACK 200 MG IV (07:33)
--- NOTE | 2024-02-09 07:43 | PM.OP.1 ---
Operative Date/Time/Diagnoses Date of procedure: 02/09/24 Time of procedure: 07:55 Pre-op diagnosis: Left knee OA Post-op diagnosis: same Procedure & Clinicians Procedure: Left total knee arthroplasty Same procedure as scheduled: Yes Indications: The patient has had progressively worsening left knee pain with radiographic changes consistent with arthritis. Non-operative management has failed and the patient has requested total knee replacement. The risks, benefits and alternatives to surgery were discussed with the patient prior to proceeding. Risks discussed included, but were not limited to, failure to relieve pain, stiffness, infection, nerve damage, deep venous thrombosis, pulmonary embolism, stroke, coma, heart attack, permanent paralysis and , as well as the potential need for eventual revision of the prosthetic. Surgeon: Brigitte Anderson Quality Control Representative: Andrade Dunbar Anesthesia Type: Peripheral nerve block Operative Notes Findings: Severe left knee OA, adequate bone Closure Type: primary Specimen(s): none sent Prosthetic devices, grafts, tissues, transplants, or devices: Journey BCS 2 size 4 femur, size 3 tibia, 9 mm poly, 35 x 7-1/2 round patella Estimated Blood Loss (mL): 200 Blood products transfused: none Tourniquet time (min): 79 Procedure in detail: The patient was seen in the pre-operative area, where the patient identified the left knee as the operative site and this was marked with my initials. The patient received pre-operative antibiotics, and was taken to the operating room and placed on the operative table in the supine position. After satisfactory anesthesia, a part time flexible clerk out was performed. The left leg was encircled with a tourniquet about the proximal thigh, and the leg was prepared from the toes to the tourniquet with ChloroPrep in the usual fashion and draped through sterile drapes. The leg was elevated and exsanguinated with Eschmark bandage and the tourniquet inflated to [250] mmHg pressure. A PA was used during the procedure and was essential for intraoperative retraction and safe implantation of the components. The knee was approached through an approximately 18 cm incision centered over the patella and carried into the knee through a medial parapatellar arthrotomy. Portion of the medial and lateral meniscus was resected. Soft tissue was carefully mobilized around the patella the patella was measured with a caliper. Bone was resected from the patella and the patellar height was reconstituted with up an appropriate sized patellar component. A cover was then placed on the patella. A small amount of additional medial and lateral meniscus was resected. Neptali pins were placed in the femur and the navigation was attached and the tibial guide was pinned to tibia. The patient's knee was meticulously navigated. It was placed her range of motion we looked at stressed and unstressed curves and made a plan to optimize range of motion and stability. The Cori bur was used for the distal femoral resection. It looked like an appropriate distal femoral cut and the cut was made without difficulty. The rotation was assessed and the appropriate size femoral guide was placed on the distal femur and finishing cuts were made. There was no evidence of notching. The anterior, posterior and chamfer cuts were then made. The posterior osteophytes and soft tissues were then removed. The posterior capsule was injected with part of a mixture of 60 ml 0.25% Marcaine mixed with 266 mg Exparel for post operative pain control. The remainder of this mixture was injected into the capsule and subcutaneous tissues during cement curing. The tibial guide was meticulously navigated. The tibial guide was pinned to the tibia and the proximal tibia was resected without difficulty. The rotation was assessed. The patient was placed in extension residual medial and lateral meniscus as well as any residual bone was carefully resected. [No] additional tibia was resected. Hemostasis was achieved especially posteriorly. Additional local was injected into the posterior capsule. The extension gap was assessed. The femoral component was trial was placed and the notch was finished. Trial tibial and femoral components were then placed and the knee placed through a range of motion. Range of motion was [0-130], with good stability throughout the range. The trials were then removed, and the tibia was finished. The bone was prepared with pulsatile lavage, and dried with a sponge. Cement was applied and the final prosthetics placed. Excess cement was removed during and after cement curing. A brief Betadine soak was performed. After confirming there was no extruded cement posteriorly, the final tibial insert was placed. The knee was copiously irrigated and the tourniquet deflated. Hemostasis was obtained with the Bovie cautery. The capsule was closed with interrupted Vicryl. The subcutaneous layer was closed with barbed sutures, and the skin with a running 3-0 V-Lock suture and Surgical glue. An Aquacel Ag dressing was applied and the patient was taken to recovery having tolerated the procedure well. Complications: none Post-operative Condition: stable Disposition: Acute Care Plan for aftercare: The patient will be maintained on a standard total knee replacement protocol with weight bearing as tolerated. The patient will receive Eliquis and sequential compression devices for DVT prophylaxis. The patient will be discharged home when safe for the home environment.
--- NOTE | 2024-02-09 07:46 | SUR.PREOP ---
Block start time [0734] . Monitoring initiated and maintained throughout procedure. Oxygen and medications given per anesthesiologist instructions. Patient remained stable throughout procedure, no adverse reactions noted. Block end time [0742].
--- NOTE | 2024-02-09 07:48 | DI.RAD.S_ITS ---
PROCEDURE: XR KNEE LT 1TO2V INDICATIONS: TKA TECHNIQUE: 2 views of the knee were acquired. COMPARISON: [facility] [place], CR, XR KNEE 4+ VIEWS LEFT, 02/03/2024, 8:22. FINDINGS: Bones: Left knee arthroplasty in appropriate position. Soft tissues: Postsurgical swelling and skin deysi. IMPRESSION: Postsurgical changes following left knee arthroplasty. Dictated by: Rocco Griffith M.D. on 02/09/2024 at 11:30 Approved by: Rocco Griffith M.D. on 02/09/2024 at 11:30
[2024-02-09] MEDS: CEFAZOLIN 2 GM/100 ML PREMIX 100 ML IV (08:00)
[2024-02-09] MEDS: TRANEXAMIC ACID 1,000 MG VIAL 2000 MG INJ ×2 (08:04→09:42)
--- NOTE | 2024-02-09 08:31 | SUR.OPER ---
Supine on padded OR bed. Pillow under head, arms secured on padded armboards <90 degree abduction. Safety belt across torso. Non-operative leg secured with tape over blanket over lower leg. Operative leg secured in DeMayo/Beau/Nathe positioner. Foam padded brace at thigh of operative leg.
[2024-02-09] MEDS: BUPIVACAINE LIPOSOME 266 MG/20 ML VIAL INJ (09:22)
[2024-02-09] MEDS: BUPIVACAINE 0.25% (PF) 60 ML, EPINEPHrine 0.3 MG INJ (09:23)
== END 2024-02-09 13:57 | disposition home or self-care (01) ==
PROVIDERS: PCP Family Medicine; Referring Provider Orthopaedic Surgery; Visit Provider Orthopaedic Surgery
PROC: 0SRD0JZ Replacement of Left Knee Joint with Synthetic Substitute, Open Approach (ICD-10-PCS; CPT 27447; principal; 2024-02-09 07:45)
DX: M17.12 Unilateral primary osteoarthritis, left knee (principal); G89.18 Other acute postprocedural pain; M25.762 Osteophyte, left knee
CPT/HCPCS: 27447; 64450; 73560; C1776; C9290; J0171; J0690; J1100; J2250; J2405; J2704

== ENCOUNTER → 2024-02-12 07:21 | Outpatient (CLI) | payer MEDICARE, OTHER, SELFPAY ==
[2023-09-29 20:24] VITALS: BMI 23.3
[2024-02-12 08:11] LABS: Appearance Urine UA CLEAR; Bilirubin Urine UA NEGATIVE (NEGATIVE); Color Urine UA YELLOW; Glucose Urine UA NEGATIVE (Negative); Ketones Urine UA TRACE (NEGATIVE); Leukocyte Esterase Urine UA NEGATIVE (NEGATIVE); Nitrite Urine UA NEGATIVE (Negative); Occult Blood Urine UA NEGATIVE (Negative); Protein Urine UA NEGATIVE (Negative); Urobilinogen Urine UA 0.2 E.U./dL (0.2)
[2024-02-12 08:12] LABS: pH Urine UA 5.5 (4.5-8.0)
[2024-02-12 08:18] LABS: Squamous Epithelial Cell Urine 1-5 /HPF (0-5/HPF); Urine Volume 10mL (spun)
[2024-02-12 08:19] LABS: Bacteria Urine None Seen; Culture Indicated Urine Cult Not Indicated; RBC Urine None Seen (0-5/HPF); WBC Urine 0-1/HPF (0-5/HPF)
== END ==
PROVIDERS: PCP Family Medicine; Referring Provider Orthopaedic Surgery; Visit Provider Orthopaedic Surgery
DX: R82.90 Unspecified abnormal findings in urine (principal); R82.79 Other abnormal findings on microbiological examination of urine
CPT/HCPCS: 81001; 87086